=== PATIENT | male | born 1950 | race Hispanic/Latino ===

== ENCOUNTER 2020-04-14 23:25 | Emergency (ER) | payer MEDICARE | END 2020-04-15 | disposition left against medical advice (07) | LOC: ED 23:25 | DX: Z00.00 Encounter for general adult medical examination without abnormal findings (principal); Z53.21 Procedure and treatment not carried out due to patient leaving prior to being seen by health care provider ==

== ENCOUNTER 2020-04-18 12:52 | Inpatient (IN) | payer MEDICARE ==
[2020-04-18] MEDS ORDERED: MELATONIN 5 MG TAB PO PRN (13:11)
--- NOTE | 2020-04-18 21:14 | Consultation ---
History of Present Illness - Reason for Consult Consult date: 04/18/20 Medical management Requesting physician: KARLA REIS - History of Present Illness 69 YO Male with Vascular Dementia with Behavioral Disturbance, Cerebral Atherosclerosis admitted to [facility] for Psychiatric stabilization. Consult placed by Dr. Reis for medical management. Patient seen and evaluated in the recreation room. Patient resting comfortably. Patient denies fever, chills, chest pain, palpitation, productive cough, skin rash, recent ill contacts, or known exposure to COVID-19. Past History Past Medical History: other (See HPI) Past Surgical History: No surgical history, Other (Reviewed) Social history: single. denies: smoking, alcohol abuse Family history: hypertension Medications and Allergies Allergies Allergy/AdvReac Type Severity Reaction Status Date / Time No Known Allergies Allergy Verified 04/15/20 10:56 Home Medications Medication Instructions Recorded Confirmed Last Taken Type Unobtainable 04/18/20 04/18/20 Unknown History Active Meds: Active Medications Divalproex Sodium (Divalproex Dr 125 Mg Tab) 125 mg PO BID [facility] Melatonin (Melatonin 5 Mg Tab) 5 mg PO QHS PRN PRN Reason: Sleep Trazodone HCl (Trazodone 50 Mg Tab) 50 mg PO QHS [facility] Review of Systems Constitutional: no weight loss, no weight gain, no fever, no chills Ears, nose, mouth and throat: no ear pain, no ear discharge, no tinnitis Cardiovascular: no chest pain, no orthopnea, no palpitations, no rapid/irregular heart beat, no edema Respiratory: no cough, no cough with sputum, no hemoptysis Gastrointestinal: no nausea, no vomiting, no diarrhea, no constipation Genitourinary Male: no hematuria, no flank pain, no discharge, no urinary frequency, no urinary hesitancy Rectal: no pain, no incontinence, no bleeding Musculoskeletal: no neck stiffness, no neck pain, no shooting arm pain, no low back pain, no leg numbness/tingling Integumentary: no rash, no pruritis, no redness, no sores Neurological: no head injury, no transient paralysis, no weakness, no parathesias, no numbness, no tingling Psychiatric: no anxiety, no change in appetite Endocrine: no cold intolerance, no heat intolerance, no polyphagia Hematologic/Lymphatic: no easy bruising, no easy bleeding Allergic/Immunologic: no urticaria, no allergic rhinitis Exam - Constitutional General appearance: Present: no acute distress, well-nourished - EENT Eyes: Present: PERRL ENT: hearing intact, clear oral mucosa - Neck Neck: Present: supple, normal ROM - Respiratory Respiratory effort: normal Respiratory: bilateral: CTA - Cardiovascular Heart Sounds: Present: S1 & S2. Absent: rub, click - Extremities Extremities: pulses symmetrical, No edema Peripheral Pulses: within normal limits - Abdominal General gastrointestinal: Present: soft, non-tender, non-distended, normal bowel sounds Male genitourinary: Present: normal - Integumentary Integumentary: Present: clear, warm, dry - Musculoskeletal Musculoskeletal: gait normal, strength equal bilaterally - Psychiatric Psychiatric: appropriate mood/affect, intact judgment & insight - Neurologic Neurologic: CNII-XII intact, moves all extremities Assessment and Plan - Patient Problems (1) Vascular dementia with behavioral disturbance Current Visit: Yes Status: Acute Plan to address problem: Verbal prompting, verbal redirection, benzodiazepine therapy as clinically indic ated, supportive care. (2) Cerebral atherosclerosis Current Visit: Yes Status: Acute Plan to address problem: Risk factor reduction, antiplatelet therapy as clinically indicated, supportive care.
[2020-04-18] MEDS: DIVALPROEX DR 125 MG TAB PO SCH (21:40)
[2020-04-18] MEDS: traZODone 50 MG TAB PO SCH (21:41)
[2020-04-19 07:17] LABS: Chol/HDL Ratio 2.29 %
--- NOTE | 2020-04-19 08:15 | History and Physical Report ---
GP History & Physical - History of Present Illness Date of admission: 04/18/20 Date of Examination: 04/19/20 Reason for Admission: Failure of Outpatient Treatment, Unable to care for self History of Present Illness: Oh Medina is a 69y/o male patient whom I've been treating for the past couple of days in the ER. The patient was brought in by police after being found wandering the streets. Upon arriving to the ER the patient was found to be agitated, and disorganized. It is documented that family states the patient has been missing for a week. During my interview with the patient he is lying down, he is resting with his eyes closed. He easily arouses. He is oriented x 1. He is a poor historian and it's unclear as to what he's telling me is factual. The patient's speech is garbled and very difficult to understand. The patient states "I had a vasectomy and it affected the way I speak." He was unable to tell me what brought him to the ER. The patient states he saw a psychiatrist "a long time ago." It is documented that the patient has a history of schizophrenia and takes zyprexa. He denies being on any psychiatric medications, but does state he takes "melatonin to help him sleep." When asking the patient was he suicidal or wanted to hurt anybody else, he shook his head, then replied "no." When asked had he ever in the past attempted suicide, the patient replied "no, I'd never do that." He also denies hallucinations of any kind. The patient denies any illicit drug use or nicotine. He says he drinks "very little alcohol." During my interview with the patient today he is sitting on side of the bed, he is well groomed. He is a/o x 3, although he is nonsensical at times. He apparently hallucinates at times as well; as the patient was witness by the sitter yesterday talking to himself a lot, and has been off of his medication. The patient starts telling me that "years ago he tried heroine." He then says "but that was long ago, not anymore." When asked about hallucinations, the patient replies "no." After mentioning to him that the staff yesterday observed him speaking to himself a lot, the patient replies "I have impressions of José, Jehovah, and wisdom." He then starts quoting a Bible scripture." The patient says "I wouldn't necessarily say that's talking to myself, but I would say that I have conversations with wisdom." The patient denies SI/HI. PAST PSYCHIATRIC HISTORY Diagnoses: schizophrenia Suicide attempts or Self-harm behavior: Denies Prior psychiatric hospitalizations: Denies Substance Abuse history: Heroine Previous psychiatric medications tried: zyprexa documented Outpatient treatment: "a long time ago." PAST MEDICAL HISTORY: None reported Family Psychiatric History: None reported or documented SOCIAL HISTORY Unable to assess REVIEW OF SYSTEMS Constitutional: Negative for weight loss ENT: Negative for stridor Respiratory: Negative for cough or hemoptysis All other systems reviewed and are negative MENTAL STATUS EXAMINATION General Appearance and Behavior: Age appropriate, good hygiene, wearing appropriate clothes, poor eye contact Cooperation: Participating/engaged Psychomotor Behavior: Psychomotor normal Mood: "not good" Affect and affective range: congruent with stated mood Thought Process: illogical Thought Content: none Speech: Normal rate, volume and rhythm Suicidal Ideation: Denies at present Homicidal Ideation: Denies Hallucinations: Denies Delusions: None elicited Impulse Control: Impaired Insight and Judgment: impaired insight and judgment Memory: Impaired Attention: impaired Orientation: Alert, oriented Assessment and Plan (1) Schizophrenia (2) Noncompliance with other medical treatments and regimen Treatment Plan Patient admitted for inpatient psychiatric evaluation, medication adjustment and close monitoring The patient's behavior, mood, sleep and appetite will be closely monitored. Patient enrolled in individual and group therapeutic sessions and encouraged to attend. Patient provided with a safe and structured environment. Patient's physical health needs will be addressed by the Hospitalist. Hospitalist Consulted Labs including CBC, CMP, Lipid profile and Hemoglobin A1C levels ordered for baseline reference Social Assessment will be completed and the Napkin Band Wrapper will work with patient and family to ensure a suitable and safe disposition Medication adjustment will be made as clinically indicated Start Klonozepam 0.25mg po BID x 2 days Start Zyprexa 5mgm po daily Start Trazodone 50mg po qhs Start melatonin 5mg po qhs prn insomnia Start Depakote DR 125mg po BID Usual Wellness Yazidi/Preservation: - Start Trazodone 50 mg po QHS & 50 mg po QHS PRN between 10 PM & 2 AM for insomnia - Start Melatonin 5 mg po QHS to promote circadian rhythm - Start [place]-3 for brain health, reduce impulsivity, and as adjunctive treatment for mood disorder, continue upon discharge given overall benefits. - Start B1 prophylaxis with 200 mg po for 5 days The patient agreed on the treatment plan, understood the risk, benefit, alternative treatment, potential consequence of no treatment, and gave informed consent. Initial Certification I certify that the inpatient psychiatric services are required for treatment that could reasonably be expected to improve the patient's condition for hallucinations and disorganization. Estimated days: 5 Post hospital care: Outpatient Case staffed with Dr. Briceño. Legal Status: Voluntary Reaction to Hospitalization: Accepting Medications and Allergies Allergies Allergy/AdvReac Type Severity Reaction Status Date / Time No Known Allergies Allergy Verified 04/15/20 10:56 Home Medications Medication Instructions Recorded Confirmed Last Taken Type Unobtainable 04/18/20 04/18/20 Unknown History Active Meds: Active Medications Divalproex Sodium (Divalproex Dr 125 Mg Tab) 125 mg PO BID [facility] Last Admin: 04/18/20 21:40 Dose: 125 mg Documented by: Melatonin (Melatonin 5 Mg Tab) 5 mg PO QHS PRN PRN Reason: Sleep Trazodone HCl (Trazodone 50 Mg Tab) 50 mg PO QHS [facility] Last Admin: 04/18/20 21:41 Dose: 50 mg Documented by: Results - Results Labs/Vitals: Laboratory Last Values POC Glucose 86 mg/dL (70-105) 04/19/20 07:47 Triglycerides 94 mg/dL (2-149) 04/19/20 06:14 Cholesterol 140 mg/dL (50-199) 04/19/20 06:14 LDL Cholesterol Direct 61 mg/dL (50-130) 04/19/20 06:14 HDL Cholesterol 61 mg/dL (40-59) H 04/19/20 06:14 Cholesterol/HDL Ratio 2.29 % 04/19/20 06:14 TSH 2.660 mlU/mL (0.270-4.200) 04/19/20 06:14 Last Vital Signs Temp 99.1 F 04/18/20 22:00 Pulse 81 04/18/20 22:00 Resp 16 04/18/20 22:00 BP 135/58 04/18/20 22:00 Pulse Ox 99 04/18/20 22:00 Physical Examination - Constitutional Vitals: Vital Signs Temp Pulse Resp BP Pulse Ox 99.1 F 81 16 135/58 99 04/18/20 22:00 04/18/20 22:00 04/18/20 22:00 04/18/20 22:00 04/18/20 22:00 Temperature -Last 24 Hours Temperature 99.1 F Mental Status Exam - Vital signs Last Vital Signs Temp 99.1 F 04/18/20 22:00 Pulse 81 04/18/20 22:00 Resp 16 04/18/20 22:00 BP 135/58 04/18/20 22:00 Pulse Ox 99 04/18/20 22:00 Physician Certification - Certification Statement Physician Certification Statement: This is an acknowledgement statement that OH MEDINA is a 69 year old M who requires inpatient psychiatric admission for treatment which could reasonably be expected to improve the patient's condition for Estimated period of time patient will need to remain in the hospital: [ ] Plan for post-hospital care: [ ]
[2020-04-19] MEDS: DIVALPROEX DR 125 MG TAB PO SCH ×2 (09:50→21:03)
[2020-04-19] MEDS: clonazePAM 0.5 MG TAB PO SCH ×2 (09:50→21:04)
[2020-04-19] MEDS: traZODone 50 MG TAB PO SCH (21:03)
--- NOTE | 2020-04-20 08:17 | Progress Note ---
Subjective Date of service: 04/20/20 Principal diagnosis: Schizophrenia Subjective Comment: During my interview with the patient this morning, he is sitting in the dayroom. He is a/o x 3, but thoughts are disorganized at times. He is calm and cooperative. The patient appears to have some hyper-cheondoism episodes. The patient initially says "I slept good good all night." He then says "I took cat naps, and was awake most of the night." He is asking me if he can call the number on the menu to speak about his breakfast. He says "I can't find my smart phone to call myself." The patient denies SI/HI. He also denies hallucinations of any kind. The patient then replies, "Our God shall not slumber nor sleep. It is the same way with people." The patient is seen mumbling to himself as I'm walking off. REVIEW OF SYSTEMS Constitutional: Negative for weight loss ENT: Negative for stridor Respiratory: Negative for cough or hemoptysis All other systems reviewed and are negative MENTAL STATUS EXAMINATION General Appearance and Behavior: Age appropriate, good hygiene, wearing appropriate clothes, poor eye contact Cooperation: Participating/engaged Psychomotor Behavior: Psychomotor normal Mood: "good" Affect and affective range: congruent with stated mood Thought Process: illogical, disorganized at times Thought Content: hallucinations Speech: Normal rate, volume and rhythm Suicidal Ideation: Denies at present Homicidal Ideation: Denies Hallucinations: Denies Delusions: None elicited Impulse Control: Impaired Insight and Judgment: impaired insight and judgment Memory: Impaired Attention: impaired Orientation: Alert, oriented Assessment and Plan (1) Schizophrenia (2) Noncompliance with other medical treatments and regimen Treatment Plan Patient admitted for inpatient psychiatric evaluation, medication adjustment and close monitoring The patient's behavior, mood, sleep and appetite will be closely monitored. Patient enrolled in individual and group therapeutic sessions and encouraged to attend. Patient provided with a safe and structured environment. Patient's physical health needs will be addressed by the Hospitalist. Hospitalist Consulted Labs including CBC, CMP, Lipid profile and Hemoglobin A1C levels ordered for baseline reference Social Assessment will be completed and the Bryologist will work with patient and family to ensure a suitable and safe disposition Medication adjustment will be made as clinically indicated Increased Depakote DR 250mg p BID Increased Olanzapine 7.5mg po daily Usual Wellness Anglican/Preservation: - Start Trazodone 50 mg po QHS & 50 mg po QHS PRN between 10 PM & 2 AM for insomnia - Start Melatonin 5 mg po QHS to promote circadian rhythm - Start [place]-3 for brain health, reduce impulsivity, and as adjunctive treatment for mood disorder, continue upon discharge given overall benefits. - Start B1 prophylaxis with 200 mg po for 5 days The patient agreed on the treatment plan, understood the risk, benefit, alternative treatment, potential consequence of no treatment, and gave informed consent. Estimated days: 5 Post hospital care: Outpatient Case staffed with Dr. Briceño. Medications and Allergies Allergies Allergy/AdvReac Type Severity Reaction Status Date / Time No Known Allergies Allergy Verified 04/15/20 10:56 Home Medications Medication Instructions Recorded Confirmed Last Taken Type Unobtainable 04/18/20 04/18/20 Unknown History Active Meds: Active Medications Clonazepam (Clonazepam 0.5 Mg Tab) 0.25 mg PO BID [facility] Stop: 04/21/20 06:00 Last Admin: 04/19/20 21:04 Dose: 0.25 mg Documented by: Divalproex Sodium (Divalproex Dr 125 Mg Tab) 125 mg PO BID [facility] Last Admin: 04/19/20 21:03 Dose: 125 mg Documented by: Melatonin (Melatonin 5 Mg Tab) 5 mg PO QHS PRN PRN Reason: Sleep Olanzapine (Olanzapine 5 Mg Tab) 5 mg PO QDAY [facility] Last Admin: 04/19/20 09:50 Dose: 5 mg Documented by: Trazodone HCl (Trazodone 50 Mg Tab) 50 mg PO QHS [facility] Last Admin: 04/19/20 21:03 Dose: 50 mg Documented by: Results - Results Labs/Vitals: Laboratory Last Values POC Glucose 86 mg/dL (70-105) 04/19/20 07:47 Triglycerides 94 mg/dL (2-149) 04/19/20 06:14 Cholesterol 140 mg/dL (50-199) 04/19/20 06:14 LDL Cholesterol Direct 61 mg/dL (50-130) 04/19/20 06:14 HDL Cholesterol 61 mg/dL (40-59) H 04/19/20 06:14 Cholesterol/HDL Ratio 2.29 % 04/19/20 06:14 TSH 2.660 mlU/mL (0.270-4.200) 04/19/20 06:14 Last Vital Signs Temp 99.6 F 04/19/20 22:00 Pulse 83 04/19/20 22:00 Resp 18 04/19/20 22:00 BP 137/59 04/19/20 22:00 Pulse Ox 97 04/19/20 22:00
[2020-04-20] MEDS: clonazePAM 0.5 MG TAB PO SCH ×2 (10:21→21:53)
[2020-04-20] MEDS: DIVALPROEX DR 250 MG TAB PO SCH ×2 (10:22→21:54)
[2020-04-20] MEDS: traZODone 50 MG TAB PO SCH (21:54)
--- NOTE | 2020-04-21 07:18 | Progress Note ---
Subjective Date of service: 04/21/20 Principal diagnosis: Schizophrenia Subjective Comment: Per Psych Nurse: Patient is alert and oriented X3, calm and cooperative, took medication with encouragement, pt says," I don't take medication and I am being forced to take all this medications, i will have to get my Director Of Finance". Pt. observes talking to himself, no agitation, no distress noted, he interact appropriately with peers, he participate in group. Will continue to monitor. Psych Progress HPI Patient seen in the hallway this a.m., when asked patient why is in the hospital, patient reported it was because he was talking to a bunch of [employer]if[employer]ian workers and that was his own side of the story, not what is being portrayed unforetold at this facility and by the data warehouse administrator. Patient starting quoting the bible, says whatever has happened in the past is the past and wishes not to talk about. Patient is circumstantial in response, makes less meaningful sentences. Patient also states he does not want to take the medicines because they are poison, someone here is trying to get to sleep and not wake up. Reason for continuing inpatient treatment: Nurse reports poor sleep, Though patient has history of Schizophrenia, concern for underlying dementia, will continue medications and ensure compliance for 2 more days and conduct mental status exam to capture best response. REVIEW OF SYSTEMS Constitutional: Negative for weight loss ENT: Negative for stridor Respiratory: Negative for cough or hemoptysis All other systems reviewed and are negative MENTAL STATUS EXAMINATION General Appearance and Behavior: Age appropriate, good hygiene, wearing appropriate clothes, poor eye contact Cooperation: Participating/engaged Psychomotor Behavior: Psychomotor normal Mood: "good" Affect and affective range: congruent with stated mood Thought Process: illogical, disorganized at times Thought Content: hallucinations, paranoia Speech: Normal rate, volume and rhythm Suicidal Ideation: Denies at present Homicidal Ideation: Denies Hallucinations: Denies Delusions: None elicited Impulse Control: Impaired Insight and Judgment: impaired insight and judgment Memory: Impaired Attention: impaired Orientation: Alert, oriented Assessment and Plan (1) Schizophrenia (2) Noncompliance with other medical treatments and regimen Treatment Plan Patient admitted for inpatient psychiatric evaluation, medication adjustment and close monitoring The patient's behavior, mood, sleep and appetite will be closely monitored. Patient enrolled in individual and group therapeutic sessions and encouraged to attend. Patient provided with a safe and structured environment. Patient's physical health needs will be addressed by the Hospitalist. Hospitalist Consulted Labs including CBC, CMP, Lipid profile and Hemoglobin A1C levels ordered for baseline reference Social Assessment will be completed and the Concrete Engineer will work with patient and family to ensure a suitable and safe disposition Medication adjustment will be made as clinically indicated Increased Depakote DR 250mg p BID Increased Olanzapine 7.5mg po daily Usual Wellness Advent/Preservation: - Start Trazodone 50 mg po QHS & 50 mg po QHS PRN between 10 PM & 2 AM for insomnia - Start Melatonin 5 mg po QHS to promote circadian rhythm - Start [place]-3 for brain health, reduce impulsivity, and as adjunctive treatment for mood disorder, continue upon discharge given overall benefits. - Start B1 prophylaxis with 200 mg po for 5 days The patient agreed on the treatment plan, understood the risk, benefit, alternative treatment, potential consequence of no treatment, and gave informed consent. Estimated days: 5 Post hospital care: Outpatient Case staffed with Dr. Briceño. Medications and Allergies Allergies Allergy/AdvReac Type Severity Reaction Status Date / Time No Known Allergies Allergy Verified 04/15/20 10:56 Home Medications Medication Instructions Recorded Confirmed Last Taken Type Unobtainable 04/18/20 04/18/20 Unknown History Active Meds: Active Medications Divalproex Sodium (Divalproex Dr 250 Mg Tab) 250 mg PO BID [facility] Last Admin: 04/20/20 21:54 Dose: 250 mg Documented by: Melatonin (Melatonin 5 Mg Tab) 5 mg PO QHS PRN PRN Reason: Sleep Last Admin: 04/21/20 00:56 Dose: 5 mg Documented by: Olanzapine (Olanzapine 7.5 Mg Tab) 7.5 mg PO QDAY [facility] Last Admin: 04/20/20 10:22 Dose: 7.5 mg Documented by: Trazodone HCl (Trazodone 50 Mg Tab) 50 mg PO QHS [facility] Last Admin: 04/20/20 21:54 Dose: 50 mg Documented by: Results - Results Labs/Vitals: Laboratory Last Values POC Glucose 86 mg/dL (70-105) 04/19/20 07:47 Triglycerides 94 mg/dL (2-149) 04/19/20 06:14 Cholesterol 140 mg/dL (50-199) 04/19/20 06:14 LDL Cholesterol Direct 61 mg/dL (50-130) 04/19/20 06:14 HDL Cholesterol 61 mg/dL (40-59) H 04/19/20 06:14 Cholesterol/HDL Ratio 2.29 % 04/19/20 06:14 TSH 2.660 mlU/mL (0.270-4.200) 04/19/20 06:14 Last Vital Signs Temp 98.7 F 04/20/20 19:40 Pulse 74 04/20/20 19:40 Resp 20 04/20/20 19:40 BP 138/52 04/20/20 19:40 Pulse Ox 99 04/20/20 19:40
[2020-04-21] MEDS: DIVALPROEX DR 250 MG TAB PO SCH ×2 (12:19→21:01)
[2020-04-21] MEDS: MIRTAZAPINE 15 MG TAB PO SCH (21:01)
--- NOTE | 2020-04-22 09:18 | Progress Note ---
Subjective Date of service: 04/22/20 Principal diagnosis: Schizophrenia Subjective Comment: Per Psych Nurse: pt spent the evening in activity room interacting with peers, pt is alert and orientedx3, calm and cooperative, able to make needs known, medication complaint, responds to internal stimuli, observes talking to his self, good appetite, no distress noted, will continue to monitor for safety. Psych Progress HPI Patient seen this a.m., patient seems to be in a very bad mood, patient was loud, he irritated, hyperverbal and continues to cooperate with this interview this AM. Patient states that he would like to have his clothes, his bags of belongings so that he can leave, patient continues to "the Bible talking about how the devil is in the [address] Patient also states that he would never take any medication because the medication sedating, later patient apologized for his misplaced anger. Reason for continuing inpatient treatment: Patient is hyperverbal, very irritated, loud and angry this a.m. and also states that he would not be taking any medication., concern for underlying dementia, will continue medications and ensure compliance for 2 more days and conduct mental status exam to capture best response. REVIEW OF SYSTEMS Constitutional: Negative for weight loss ENT: Negative for stridor Respiratory: Negative for cough or hemoptysis All other systems reviewed and are negative MENTAL STATUS EXAMINATION General Appearance and Behavior: Age appropriate, good hygiene, wearing appropriate clothes, poor eye contact Cooperation: Withdrawn, guarded Psychomotor Behavior: Psychomotor agitation Mood: "not telling" Affect and affective range: dysthymic Thought Process: illogical, disorganized at times Thought Content: hallucinations, paranoia Speech: Normal rate, loud volume and rhythm Suicidal Ideation: Denies at present Homicidal Ideation: Denies Hallucinations: Denies Delusions: None elicited Impulse Control: Impaired Insight and Judgment: impaired insight and judgment Memory: Impaired Attention: impaired Orientation: Alert, oriented Assessment and Plan (1) Schizophrenia (2) Noncompliance with other medical treatments and regimen Treatment Plan Patient admitted for inpatient psychiatric evaluation, medication adjustment and close monitoring The patient's behavior, mood, sleep and appetite will be closely monitored. Patient enrolled in individual and group therapeutic sessions and encouraged to attend. Patient provided with a safe and structured environment. Patient's physical health needs will be addressed by the Hospitalist. Hospitalist Consulted Labs including CBC, CMP, Lipid profile and Hemoglobin A1C levels ordered for baseline reference Social Assessment will be completed and the Soloist Dancer will work with patient and family to ensure a suitable and safe disposition Medication adjustment will be made as clinically indicated Increased Depakote DR 250mg p BID Increased Olanzapine 7.5mg po daily Usual Wellness Evangelical/Preservation: - Start Trazodone 50 mg po QHS & 50 mg po QHS PRN between 10 PM & 2 AM for insomnia - Start Melatonin 5 mg po QHS to promote circadian rhythm - Start [place]-3 for brain health, reduce impulsivity, and as adjunctive treatment for mood disorder, continue upon discharge given overall benefits. - Start B1 prophylaxis with 200 mg po for 5 days The patient agreed on the treatment plan, understood the risk, benefit, alternative treatment, potential consequence of no treatment, and gave informed consent. Estimated days: 5 Post hospital care: Outpatient Case staffed with Dr. Briceño. Medications and Allergies Allergies Allergy/AdvReac Type Severity Reaction Status Date / Time No Known Allergies Allergy Verified 04/15/20 10:56 Home Medications Medication Instructions Recorded Confirmed Last Taken Type Unobtainable 04/18/20 04/18/20 Unknown History Active Meds: Active Medications Divalproex Sodium (Divalproex Dr 250 Mg Tab) 250 mg PO BID [facility] Last Admin: 04/21/20 21:01 Dose: 250 mg Documented by: Melatonin (Melatonin 5 Mg Tab) 5 mg PO QHS PRN PRN Reason: Sleep Last Admin: 04/21/20 00:56 Dose: 5 mg Documented by: Mirtazapine (Mirtazapine 15 Mg Tab) 15 mg PO QHS [facility] Last Admin: 04/21/20 21:01 Dose: 15 mg Documented by: Olanzapine (Olanzapine 7.5 Mg Tab) 7.5 mg PO QDAY [facility] Last Admin: 04/21/20 12:19 Dose: 7.5 mg Documented by: Results - Results Labs/Vitals: Laboratory Last Values POC Glucose 86 mg/dL (70-105) 04/19/20 07:47 Triglycerides 94 mg/dL (2-149) 04/19/20 06:14 Cholesterol 140 mg/dL (50-199) 04/19/20 06:14 LDL Cholesterol Direct 61 mg/dL (50-130) 04/19/20 06:14 HDL Cholesterol 61 mg/dL (40-59) H 04/19/20 06:14 Cholesterol/HDL Ratio 2.29 % 04/19/20 06:14 TSH 2.660 mlU/mL (0.270-4.200) 04/19/20 06:14 Last Vital Signs Temp 98.2 F 04/22/20 06:53 Pulse 79 04/22/20 06:53 Resp 16 04/22/20 06:53 BP 138/60 04/22/20 06:53 Pulse Ox 100 04/22/20 06:53
[2020-04-22] MEDS: DIVALPROEX DR 250 MG TAB PO SCH ×3 (10:39→22:36)
[2020-04-22] MEDS ORDERED: WATER FOR INJ Sterile (PF) 10 ML ONE (10:40)
[2020-04-22] MEDS: LORazepam 2 MG/ML VIAL IM PRN ×2 (11:03→18:16)
[2020-04-22] MEDS: ZIPRASIDONE MESYLATE 20 MG VIAL IM PRN ×2 (11:03→18:16)
[2020-04-22] MEDS: MIRTAZAPINE 15 MG TAB PO SCH ×2 (21:39→22:38)
--- NOTE | 2020-04-23 09:22 | Progress Note ---
Subjective Date of service: 04/23/20 Principal diagnosis: Schizophrenia Subjective Comment: Per Psych Nurse: Patient slept until 0115. He was awake until 0415. He stood at his sink washing a piece of laundry most of that time. This morning at 6 am the patient came to nurses station wrapped in his blanket asking for scrubs and socks. He was mumbling some incoherent sentences and ended that with a Bible scripture. Will continue to monitor patient for safety. Psych Progress HPI Patient seen this a.m. in the hour, seems to be talking to self, responding some sort of internal stimuli with intermittent confusion and patient continues to be apologetic about yesterday's behavior. Patient can also be heard quoting the Bible, saying one should not listen to their master unless the master curses them. Reason for continuing inpatient treatment: Increased patients deparkote for his manic symptoms. Patient is hyperverbal, very irritated, loud and angry this a.m. and also states that he would not be taking any medication still. Patient star bashir on IM geodon BID due to non compliance. REVIEW OF SYSTEMS Constitutional: Negative for weight loss ENT: Negative for stridor Respiratory: Negative for cough or hemoptysis All other systems reviewed and are negative MENTAL STATUS EXAMINATION General Appearance and Behavior: Age appropriate, good hygiene, wearing appropriate clothes, poor eye contact Cooperation: guarded Psychomotor Behavior: Psychomotor agitation Mood: "not telling" Affect and affective range: dysthymic Thought Process: illogical, incoherent disorganized at times Thought Content: hallucinations, paranoia Speech: Normal rate, loud volume and rhythm Suicidal Ideation: Denies at present Homicidal Ideation: Denies Hallucinations: Denies Delusions: None elicited Impulse Control: Impaired Insight and Judgment: impaired insight and judgment Memory: Impaired Attention: impaired Orientation: Alert, oriented Assessment and Plan (1) Schizophrenia (2) Noncompliance with other medical treatments and regimen Treatment Plan Patient admitted for inpatient psychiatric evaluation, medication adjustment and close monitoring The patient's behavior, mood, sleep and appetite will be closely monitored. Patient enrolled in individual and group therapeutic sessions and encouraged to attend. Patient provided with a safe and structured environment. Patient's physical health needs will be addressed by the Hospitalist. Hospitalist Consulted Labs including CBC, CMP, Lipid profile and Hemoglobin A1C levels ordered for baseline reference Social Assessment will be completed and the Commercial Hvac Technician will work with patient and family to ensure a suitable and safe disposition Medication adjustment will be made as clinically indicated IM geodon 2 doses 10 mg for today. Increased Depakote DR 500 mg MID Increased Olanzapine 10mg po daily Usual Wellness Evangelical/Preservation: - Start Trazodone 50 mg po QHS & 50 mg po QHS PRN between 10 PM & 2 AM for insomnia - Start Melatonin 5 mg po QHS to promote circadian rhythm - Start [place]-3 for brain health, reduce impulsivity, and as adjunctive treatment for mood disorder, continue upon discharge given overall benefits. - Start B1 prophylaxis with 200 mg po for 5 days The patient agreed on the treatment plan, understood the risk, benefit, alternative treatment, potential consequence of no treatment, and gave informed consent. Estimated days: 4 Post hospital care: Outpatient Case staffed with Dr. Briceño. Medications and Allergies Allergies Allergy/AdvReac Type Severity Reaction Status Date / Time No Known Allergies Allergy Verified 04/15/20 10:56 Home Medications Medication Instructions Recorded Confirmed Last Taken Type Unobtainable 04/18/20 04/18/20 Unknown History Active Meds: Active Medications Divalproex Sodium (Divalproex Dr 250 Mg Tab) 250 mg PO BID [facility] Last Admin: 04/22/20 22:36 Dose: Not Given Documented by: Lorazepam (Lorazepam 2 Mg/Ml Vial) 2 mg IM Q4H PRN PRN Reason: Agitation Last Admin: 04/22/20 18:16 Dose: 2 mg Documented by: Melatonin (Melatonin 5 Mg Tab) 5 mg PO QHS PRN PRN Reason: Sleep Last Admin: 04/21/20 00:56 Dose: 5 mg Documented by: Mirtazapine (Mirtazapine 15 Mg Tab) 15 mg PO QHS [facility] Last Admin: 04/22/20 22:38 Dose: Not Given Documented by: Olanzapine (Olanzapine 7.5 Mg Tab) 7.5 mg PO QDAY [facility] Last Admin: 04/22/20 10:39 Dose: Not Given Documented by: Results - Results Labs/Vitals: Laboratory Last Values POC Glucose 86 mg/dL (70-105) 04/19/20 07:47 Triglycerides 94 mg/dL (2-149) 04/19/20 06:14 Cholesterol 140 mg/dL (50-199) 04/19/20 06:14 LDL Cholesterol Direct 61 mg/dL (50-130) 04/19/20 06:14 HDL Cholesterol 61 mg/dL (40-59) H 04/19/20 06:14 Cholesterol/HDL Ratio 2.29 % 04/19/20 06:14 TSH 2.660 mlU/mL (0.270-4.200) 04/19/20 06:14 Last Vital Signs Temp 98.6 F 04/23/20 07:03 Pulse 95 H 04/23/20 07:03 Resp 16 04/23/20 07:03 BP 133/57 04/23/20 07:03 Pulse Ox 99 04/23/20 07:03
[2020-04-23] MEDS ORDERED: DIVALPROEX DR 250 MG TAB PO SCH ×2 (09:48→14:00)
[2020-04-23] MEDS ORDERED: WATER FOR INJ Sterile (PF) 10 ML ONE (10:34)
[2020-04-23] MEDS: ZIPRASIDONE MESYLATE 20 MG VIAL IM SCH ×2 (11:10→21:17)
[2020-04-23] MEDS: DIVALPROEX DR 500 MG TAB PO SCH ×2 (14:50→19:26)
[2020-04-23] MEDS: MIRTAZAPINE 15 MG TAB PO SCH (21:17)
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
[2020-04-24] MEDS ORDERED: FLUoxetine 20 MG CAP PO SCH (10:00)
[2020-04-24] MEDS: DIVALPROEX DR 500 MG TAB PO SCH ×3 (10:06→20:37)
[2020-04-24] MEDS ORDERED: ALBUTEROL 2.5 MG/3 ML NEBU IH PRN (11:00)
[2020-04-24] MEDS ORDERED: LEVALBUTEROL 0.63 MG/3 ML NEBU IH PRN (12:25)
--- NOTE | 2020-04-24 12:36 | XRay Report ---
CHEST 1 VIEW INDICATION / CLINICAL INFORMATION: cough. COMPARISON: 04/15/2020 FINDINGS: SUPPORT DEVICES: None. HEART / MEDIASTINUM: No significant abnormality. LUNGS / PLEURA: No significant pulmonary or pleural abnormality. No pneumothorax. ADDITIONAL FINDINGS: No significant additional findings. IMPRESSION: No acute disease or interval change from 04/15/2020 Signer Name: Amilcar Turner MD FACR Signed: 04/24/2020 12:31 PM Workstation Name: [id number]
[2020-04-24] MEDS ORDERED: ACETAMINOPHEN 325 MG TAB PO PRN (16:31)
[2020-04-24] MEDS: AMOXICILLIN 500 MG CAP PO SCH ×2 (17:38→21:12)
[2020-04-24] MEDS: ZOLPIDEM 5 MG TAB PO SCH (21:11)
[2020-04-24] MEDS: QUEtiapine 100 MG TAB PO SCH (21:11)
--- NOTE | 2020-04-24 21:11 | Progress Note ---
Assessment and Plan - Patient Problems (1) Vascular dementia with behavioral disturbance Current Visit: Yes Status: Acute Plan to address problem: Verbal prompting, verbal redirection, benzodiazepine therapy as clinically indicated, supportive care. (2) Cerebral atherosclerosis Current Visit: Yes Status: Acute Plan to address problem: Risk factor reduction, antiplatelet therapy as clinically indicated, supportive care. History Interval history: 69 YO Male with Vascular Dementia with Behavioral Disturbance, Cerebral Atherosclerosis admitted to [facility] for Psychiatric stabilization. Patient seen and evaluated in the recreation room. Patient resting comfortably. Patient denies pain. No reported nursing events. Patient cooperative with exam and interview. Hospitalist Physical - Constitutional Vitals: Temp Pulse Resp BP Pulse Ox 99.2 F 88 18 125/53 99 04/24/20 08:58 04/24/20 14:41 04/24/20 17:42 04/24/20 08:58 04/24/20 08:58 General appearance: Present: no acute distress, well-nourished - EENT Eyes: Present: PERRL, EOM intact ENT: hearing intact - Neck Neck: Present: supple - Respiratory Respiratory: bilateral: CTA - Cardiovascular Rhythm: regular Heart Sounds: Present: S1 & S2 Peripheral Pulses: within normal limits - Abdominal General gastrointestinal: soft, non-tender, non-distended - Integumentary Integumentary: Present: clear, dry - Psychiatric Psychiatric: cooperative - Neurologic Neurologic: CNII-XII intact Results - Labs Labs: Laboratory Last Values POC Glucose 103 mg/dL (70-105) 04/24/20 12:47 Triglycerides 94 mg/dL (2-149) 04/19/20 06:14 Cholesterol 140 mg/dL (50-199) 04/19/20 06:14 LDL Cholesterol Direct 61 mg/dL (50-130) 04/19/20 06:14 HDL Cholesterol 61 mg/dL (40-59) H 04/19/20 06:14 Cholesterol/HDL Ratio 2.29 % 04/19/20 06:14 TSH 2.660 mlU/mL (0.270-4.200) 04/19/20 06:14 Sanchez/IV: Voiding Method Toilet Active Medications - Current Medications Current Medications: Generic Name Dose Route Start Last Admin Trade Name Freq PRN Reason Stop Dose Admin Acetaminophen 650 mg 04/24/20 16:31 04/24/20 17:42 Acetaminophen 325 Mg Tab PO 650 mg Q6H PRN Administration Pain, Mild (1-3) Amoxicillin 500 mg 04/24/20 16:31 04/24/20 17:38 Amoxicillin 500 Mg Cap PO 04/27/20 23:59 500 mg Q8HR [facility] Administration Protocol Divalproex Sodium 500 mg 04/23/20 14:00 04/24/20 20:[address] 500 Mg Tab PO 500 mg TID [facility] Administration Fluoxetine HCl 20 mg 04/24/20 10:00 04/24/20 10:06 Fluoxetine 20 Mg Cap PO 20 mg QDAY [facility] Administration Levalbuterol HCl 0.63 mg 04/24/20 12:25 04/24/20 14:35 Levalbuterol 0.63 Mg/3 Ml Nebu IH 0.63 mg Q8H PRN Administration Shortness Of Breath Lorazepam 2 mg 04/22/20 10:02 04/22/20 18:16 Lorazepam 2 Mg/Ml Vial IM 2 mg Q4H PRN Administration Agitation Melatonin 5 mg 04/24/20 22:00 Melatonin 5 Mg Tab PO QHS [facility] Olanzapine 10 mg 04/24/20 10:00 04/24/20 10:06 Olanzapine 10 Mg Tab PO 10 mg DAILY [facility] Administration Quetiapine Fumarate 100 mg 04/24/20 22:00 Quetiapine 100 Mg Tab PO QHS [facility] Zolpidem Tartrate 5 mg 04/24/20 22:00 Zolpidem 5 Mg Tab PO QHS [facility]
[2020-04-24] MEDS: MELATONIN 5 MG TAB PO SCH (21:14)
--- NOTE | 2020-04-24 21:15 | Progress Note ---
Assessment and Plan - Patient Problems (1) Vascular dementia with behavioral disturbance Current Visit: Yes Status: Acute Plan to address problem: Verbal prompting, verbal redirection, benzodiazepine therapy as clinically indicated, supportive care. (2) Cerebral atherosclerosis Current Visit: Yes Status: Acute Plan to address problem: Risk factor reduction, antiplatelet therapy as clinically indicated, supportive care. History Interval history: 69 YO Male with Vascular Dementia with Behavioral Disturbance, Cerebral Atherosclerosis admitted to [facility] for Psychiatric stabilization. Patient seen and evaluated in the recreation room. Patient resting comfortably. Patient denies pain. No reported nursing events. Patient cooperative with exam and interview. Hospitalist Physical - Constitutional Vitals: Temp Pulse Resp BP Pulse Ox 99.2 F 88 18 125/53 99 04/24/20 08:58 04/24/20 14:41 04/24/20 17:42 04/24/20 08:58 04/24/20 08:58 General appearance: Present: no acute distress, well-nourished - EENT Eyes: Present: PERRL ENT: hearing intact - Neck Neck: Present: supple - Respiratory Respiratory: bilateral: CTA - Cardiovascular Rhythm: regular Heart Sounds: Present: S1 & S2 - Extremities Extremities: no ischemia Peripheral Pulses: within normal limits - Abdominal General gastrointestinal: soft, non-tender, non-distended - Integumentary Integumentary: Present: clear, dry - Psychiatric Psychiatric: cooperative - Neurologic Neurologic: CNII-XII intact Results - Labs Labs: Laboratory Last Values POC Glucose 103 mg/dL (70-105) 04/24/20 12:47 Triglycerides 94 mg/dL (2-149) 04/19/20 06:14 Cholesterol 140 mg/dL (50-199) 04/19/20 06:14 LDL Cholesterol Direct 61 mg/dL (50-130) 04/19/20 06:14 HDL Cholesterol 61 mg/dL (40-59) H 04/19/20 06:14 Cholesterol/HDL Ratio 2.29 % 04/19/20 06:14 TSH 2.660 mlU/mL (0.270-4.200) 04/19/20 06:14 Sanchez/IV: Voiding Method Toilet Active Medications - Current Medications Current Medications: Generic Name Dose Route Start Last Admin Trade Name Freq PRN Reason Stop Dose Admin Acetaminophen 650 mg 04/24/20 16:31 04/24/20 17:42 Acetaminophen 325 Mg Tab PO 650 mg Q6H PRN Administration Pain, Mild (1-3) Amoxicillin 500 mg 04/24/20 16:31 04/24/20 21:12 Amoxicillin 500 Mg Cap PO 04/27/20 23:59 500 mg Q8HR [facility] Administration Protocol Divalproex Sodium 500 mg 04/23/20 14:00 04/24/20 20:[address] 500 Mg Tab PO 500 mg TID [facility] Administration Fluoxetine HCl 20 mg 04/24/20 10:00 04/24/20 10:06 Fluoxetine 20 Mg Cap PO 20 mg QDAY [facility] Administration Levalbuterol HCl 0.63 mg 04/24/20 12:25 04/24/20 14:35 Levalbuterol 0.63 Mg/3 Ml Nebu IH 0.63 mg Q8H PRN Administration Shortness Of Breath Lorazepam 2 mg 04/22/20 10:02 04/22/20 18:16 Lorazepam 2 Mg/Ml Vial IM 2 mg Q4H PRN Administration Agitation Melatonin 5 mg 04/24/20 22:00 Melatonin 5 Mg Tab PO QHS [facility] Olanzapine 10 mg 04/24/20 10:00 04/24/20 10:06 Olanzapine 10 Mg Tab PO 10 mg DAILY [facility] Administration Quetiapine Fumarate 100 mg 04/24/20 22:00 04/24/20 21:11 Quetiapine 100 Mg Tab PO 100 mg QHS [facility] Administration Zolpidem Tartrate 5 mg 04/24/20 22:00 04/24/20 21:11 Zolpidem 5 Mg Tab PO 5 mg QHS [facility] Administration
--- NOTE | 2020-04-24 21:16 | Progress Note ---
Assessment and Plan - Patient Problems (1) Vascular dementia with behavioral disturbance Current Visit: Yes Status: Acute Plan to address problem: Verbal prompting, verbal redirection, benzodiazepine therapy as clinically indicated, supportive care. (2) Cerebral atherosclerosis Current Visit: Yes Status: Acute Plan to address problem: Risk factor reduction, antiplatelet therapy as clinically indicated, supportive care. History Interval history: 69 YO Male with Vascular Dementia with Behavioral Disturbance, Cerebral Atherosclerosis admitted to [facility] for Psychiatric stabilization. Patient seen and evaluated in the recreation room. Patient resting comfortably. Patient denies pain. No reported nursing events. Patient cooperative with exam and interview. Hospitalist Physical - Constitutional Vitals: Temp Pulse Resp BP Pulse Ox 99.2 F 88 18 125/53 99 04/24/20 08:58 04/24/20 14:41 04/24/20 17:42 04/24/20 08:58 04/24/20 08:58 General appearance: Present: no acute distress, well-nourished - EENT Eyes: Present: PERRL, EOM intact ENT: hearing intact - Neck Neck: Present: supple - Respiratory Respiratory effort: normal Respiratory: bilateral: CTA - Cardiovascular Rhythm: regular Heart Sounds: Present: S1 & S2 - Extremities Extremities: no ischemia Peripheral Pulses: within normal limits - Abdominal General gastrointestinal: soft, non-tender, non-distended - Integumentary Integumentary: Present: clear, dry - Psychiatric Psychiatric: cooperative - Neurologic Neurologic: CNII-XII intact Results - Labs Labs: Laboratory Last Values POC Glucose 103 mg/dL (70-105) 04/24/20 12:47 Triglycerides 94 mg/dL (2-149) 04/19/20 06:14 Cholesterol 140 mg/dL (50-199) 04/19/20 06:14 LDL Cholesterol Direct 61 mg/dL (50-130) 04/19/20 06:14 HDL Cholesterol 61 mg/dL (40-59) H 04/19/20 06:14 Cholesterol/HDL Ratio 2.29 % 04/19/20 06:14 TSH 2.660 mlU/mL (0.270-4.200) 04/19/20 06:14 Sanchez/IV: Voiding Method Toilet Active Medications - Current Medications Current Medications: Generic Name Dose Route Start Last Admin Trade Name Freq PRN Reason Stop Dose Admin Acetaminophen 650 mg 04/24/20 16:31 04/24/20 17:42 Acetaminophen 325 Mg Tab PO 650 mg Q6H PRN Administration Pain, Mild (1-3) Amoxicillin 500 mg 04/24/20 16:31 04/24/20 21:12 Amoxicillin 500 Mg Cap PO 04/27/20 23:59 500 mg Q8HR CELIA Administration Protocol Divalproex Sodium 500 mg 04/23/20 14:00 04/24/20 20:[address] 500 Mg Tab PO 500 mg TID CELIA Administration Fluoxetine HCl 20 mg 04/24/20 10:00 04/24/20 10:06 Fluoxetine 20 Mg Cap PO 20 mg QDAY CELIA Administration Levalbuterol HCl 0.63 mg 04/24/20 12:25 04/24/20 14:35 Levalbuterol 0.63 Mg/3 Ml Nebu IH 0.63 mg Q8H PRN Administration Shortness Of Breath Lorazepam 2 mg 04/22/20 10:02 04/22/20 18:16 Lorazepam 2 Mg/Ml Vial IM 2 mg Q4H PRN Administration Agitation Melatonin 5 mg 04/24/20 22:00 04/24/20 21:14 Melatonin 5 Mg Tab PO 5 mg QHS CELIA Administration Olanzapine 10 mg 04/24/20 10:00 04/24/20 10:06 Olanzapine 10 Mg Tab PO 10 mg DAILY CELIA Administration Quetiapine Fumarate 100 mg 04/24/20 22:00 04/24/20 21:11 Quetiapine 100 Mg Tab PO 100 mg QHS CELIA Administration Zolpidem Tartrate 5 mg 04/24/20 22:00 04/24/20 21:11 Zolpidem 5 Mg Tab PO 5 mg QHS CELIA Administration
--- NOTE | 2020-04-24 21:49 | Progress Note ---
Assessment and Plan - Patient Problems (1) Vascular dementia with behavioral disturbance Current Visit: Yes Status: Acute Plan to address problem: Verbal prompting, verbal redirection, benzodiazepine therapy as clinically indicated, supportive care. (2) Cerebral atherosclerosis Current Visit: Yes Status: Acute Plan to address problem: Risk factor reduction, antiplatelet therapy as clinically indicated, supportive care. (3) Congestion of nasal sinus Current Visit: Yes Status: Acute Plan to address problem: Empirical antibiotic therapy, supportive care. Tylenol as needed History Interval history: 69 YO Male with Vascular Dementia with Behavioral Disturbance, Cerebral Atherosclerosis admitted to [facility] for Psychiatric stabilization. Patient seen and evaluated in the recreation room. Patient resting comfortably. Patient denies pain. Nursing staff report fever to 102. However repeat temperature check reveals temperature between 97 and 100 F. Chest x-ray ordered. Patient treated with empiric antibiotic therapy.. Patient cooperative with exam and interview. Hospitalist Physical - Constitutional Vitals: Temp Pulse Resp BP Pulse Ox 99.2 F 88 18 125/53 99 04/24/20 08:58 04/24/20 14:41 04/24/20 17:42 04/24/20 08:58 04/24/20 08:58 General appearance: Present: no acute distress, well-nourished - EENT Eyes: Present: PERRL, EOM intact ENT: hearing intact - Neck Neck: Present: supple - Respiratory Respiratory effort: normal Respiratory: bilateral: CTA - Cardiovascular Rhythm: regular - Extremities Extremities: no ischemia Peripheral Pulses: within normal limits - Abdominal General gastrointestinal: soft, non-tender, non-distended - Integumentary Integumentary: Present: clear, dry - Psychiatric Psychiatric: cooperative - Neurologic Neurologic: CNII-XII intact Results - Labs Labs: Laboratory Last Values POC Glucose 103 mg/dL (70-105) 04/24/20 12:47 Triglycerides 94 mg/dL (2-149) 04/19/20 06:14 Cholesterol 140 mg/dL (50-199) 04/19/20 06:14 LDL Cholesterol Direct 61 mg/dL (50-130) 04/19/20 06:14 HDL Cholesterol 61 mg/dL (40-59) H 04/19/20 06:14 Cholesterol/HDL Ratio 2.29 % 04/19/20 06:14 TSH 2.660 mlU/mL (0.270-4.200) 04/19/20 06:14 Sanchez/IV: Voiding Method Toilet Active Medications - Current Medications Current Medications: Generic Name Dose Route Start Last Admin Trade Name Freq PRN Reason Stop Dose Admin Acetaminophen 650 mg 04/24/20 16:31 04/24/20 17:42 Acetaminophen 325 Mg Tab PO 650 mg Q6H PRN Administration Pain, Mild (1-3) Amoxicillin 500 mg 04/24/20 16:31 04/24/20 21:12 Amoxicillin 500 Mg Cap PO 04/27/20 23:59 500 mg Q8HR CELIA Administration Protocol Divalproex Sodium 500 mg 04/23/20 14:00 04/24/20 20:[address] 500 Mg Tab PO 500 mg TID CELIA Administration Fluoxetine HCl 20 mg 04/24/20 10:00 04/24/20 10:06 Fluoxetine 20 Mg Cap PO 20 mg QDAY CELIA Administration Levalbuterol HCl 0.63 mg 04/24/20 12:25 04/24/20 14:35 Levalbuterol 0.63 Mg/3 Ml Nebu IH 0.63 mg Q8H PRN Administration Shortness Of Breath Lorazepam 2 mg 04/22/20 10:02 04/22/20 18:16 Lorazepam 2 Mg/Ml Vial IM 2 mg Q4H PRN Administration Agitation Melatonin 5 mg 04/24/20 22:00 04/24/20 21:14 Melatonin 5 Mg Tab PO 5 mg QHS CELIA Administration Olanzapine 10 mg 04/24/20 10:00 04/24/20 10:06 Olanzapine 10 Mg Tab PO 10 mg DAILY CELIA Administration Quetiapine Fumarate 100 mg 04/24/20 22:00 04/24/20 21:11 Quetiapine 100 Mg Tab PO 100 mg QHS CELIA Administration Zolpidem Tartrate 5 mg 04/24/20 22:00 04/24/20 21:11 Zolpidem 5 Mg Tab PO 5 mg QHS CELIA Administration
[2020-04-24] MEDS ORDERED: MIRTAZAPINE 15 MG TAB PO SCH (22:00)
[2020-04-24] MEDS ORDERED: QUEtiapine 25 MG TAB PO SCH (22:00)
[2020-04-25] MEDS: AMOXICILLIN 500 MG CAP PO SCH ×3 (06:10→21:29)
--- NOTE | 2020-04-25 07:41 | Progress Note ---
Subjective Date of service: 04/25/20 Principal diagnosis: Schizophrenia Subjective Comment: Per Psych Nurse: Pt was alert, calm and cooperative. Pt reported that he was feeling better during assessment. Pt spent the entire shift in his room. Pt ate all his snack. Pt slept about 2-3 hours. pt was present for full duration of group and actively engaged. when soa integration architect asked how pt was doing today, pt replied "cold". pt's interaction with peers was good. experienced talking to self during group and when redirected by soa integration architect, pt stated "I am talking to whomever will listen. Most of the time it's José or God". pt's velvet coloring page of choice stated "Good vibes only". pt was not able to finish her artwork and was reassured that he would be able to finish today in next group session. In group, pt shared that he wrote a note to a peer. soa integration architect asked to view the note and pt was cooperative. The note read as follows "I Grabiel, do not inflict pain, basically. I promise to leave the past behind or be prosecuted. The bad things behind. I will cooperate with authorities to be placed wherever ( as long as comfortable). Women Rule: Jer 31:20-26 IN[employer] Travel Version. Signed ". When soa integration architect asked what this letter was about, pt stated that the peer " needs to sign it". Psych Progress HPI Patient seen this AM, appears calm and cooperative, improved restlessness and irritability but impulsive and hyperverbal, patient acknowledged me this AM, showed me his drawings and narrated the meanings behind each drawing, patient is more accepting to treatment and not argumentative about medications and inpatient stay. Pt still obessed with bible verses Patient denies hearing voices, denies AVH. Reason for continuing inpatient treatment: Deparkote levels at therapeutic levels, hyperthermia reported by nurse, no acute concern for serotonin syndrome, no hyperreflexia, no rigidity and no diaphoresis reported but will hold off Fluoxetine at the moment and observe. Mini mental status of 23 using SLUMS for mild dementia REVIEW OF SYSTEMS Constitutional: Negative for weight loss ENT: Negative for stridor Respiratory: Negative for cough or hemoptysis All other systems reviewed and are negative MENTAL STATUS EXAMINATION General Appearance and Behavior: Age appropriate, good hygiene, wearing appropriate clothes, goodeye contact Cooperation: cooperative Psychomotor Behavior: Psychomotor normal Mood: "im feeling better" Affect and affective range: congruent with mood Thought Process: illogical, incoherent disorganized at times Thought Content: obsessions Speech: Normal rate, loud volume and rhythm Suicidal Ideation: Denies at present Homicidal Ideation: Denies Hallucinations: Denies Delusions: None elicited Impulse Control: Impaired Insight and Judgment: impaired insight and judgment Memory: Impaired Attention: impaired Orientation: Alert, oriented Assessment and Plan (1) Schizophrenia (2) Noncompliance with other medical treatments and regimen Treatment Plan Mini mental status of 23 using SLUMS for mild dementia Stopped Fluoxetine, due to hyperthermia thou minimal clinical signs for serotonin induced hyperthermia Patient admitted for inpatient psychiatric evaluation, medication adjustment and close monitoring The patient's behavior, mood, sleep and appetite will be closely monitored. Patient enrolled in individual and group therapeutic sessions and encouraged to attend. Patient provided with a safe and structured environment. Patient's physical health needs will be addressed by the Hospitalist. Hospitalist Consulted Labs including CBC, CMP, Lipid profile and Hemoglobin A1C levels ordered for baseline reference Social Assessment will be completed and the Sleeve Maker will work with patient and family to ensure a suitable and safe disposition Medication adjustment will be made as clinically indicated IM geodon 2 doses 10 mg for today. Increased Depakote DR 500 mg TID Increased Olanzapine 10mg po daily Usual Wellness Zoroastrian/Preservation: - Start Trazodone 50 mg po QHS & 50 mg po QHS PRN between 10 PM & 2 AM for insomnia - Start Melatonin 5 mg po QHS to promote circadian rhythm - Start [place]-3 for brain health, reduce impulsivity, and as adjunctive treatment for mood disorder, continue upon discharge given overall benefits. - Start B1 prophylaxis with 200 mg po for 5 days The patient agreed on the treatment plan, understood the risk, benefit, alternative treatment, potential consequence of no treatment, and gave informed consent. Estimated days: 3 Post hospital care: Outpatient Case staffed with Dr. Briceño. Medications and Allergies Allergies Allergy/AdvReac Type Severity Reaction Status Date / Time No Known Allergies Allergy Verified 04/15/20 10:56 Home Medications Medication Instructions Recorded Confirmed Last Taken Type Unobtainable 04/18/20 04/18/20 Unknown History Active Meds: Active Medications Acetaminophen (Acetaminophen 325 Mg Tab) 650 mg PO Q6H PRN PRN Reason: Pain, Mild (1-3) Last Admin: 04/24/20 17:42 Dose: 650 mg Documented by: Amoxicillin (Amoxicillin 500 Mg Cap) 500 mg PO Q8HR [facility]; Protocol Stop: 04/27/20 23:59 Last Admin: 04/25/20 06:10 Dose: 500 mg Documented by: Divalproex Sodium (Divalproex Dr 500 Mg Tab) 500 mg PO TID [facility] Last Admin: 04/24/20 20:37 Dose: 500 mg Documented by: Fluoxetine HCl (Fluoxetine 20 Mg Cap) 20 mg PO QDAY [facility] Last Admin: 04/24/20 10:06 Dose: 20 mg Documented by: Levalbuterol HCl (Levalbuterol 0.63 Mg/3 Ml Nebu) 0.63 mg IH Q8H PRN PRN Reason: Shortness Of Breath Last Admin: 04/24/20 14:35 Dose: 0.63 mg Documented by: Lorazepam (Lorazepam 2 Mg/Ml Vial) 2 mg IM Q4H PRN PRN Reason: Agitation Last Admin: 04/22/20 18:16 Dose: 2 mg Documented by: Melatonin (Melatonin 5 Mg Tab) 5 mg PO QHS [facility] Last Admin: 04/24/20 21:14 Dose: 5 mg Documented by: Olanzapine (Olanzapine 10 Mg Tab) 10 mg PO DAILY [facility] Last Admin: 04/24/20 10:06 Dose: 10 mg Documented by: Quetiapine Fumarate (Quetiapine 100 Mg Tab) 100 mg PO QHS [facility] Last Admin: 04/24/20 21:11 Dose: 100 mg Documented by: Zolpidem Tartrate (Zolpidem 5 Mg Tab) 5 mg PO QHS [facility] Last Admin: 04/24/20 21:11 Dose: 5 mg Documented by: Results - Results Labs/Vitals: Laboratory Last Values POC Glucose 103 mg/dL (70-105) 04/24/20 12:47 Triglycerides 94 mg/dL (2-149) 04/19/20 06:14 Cholesterol 140 mg/dL (50-199) 04/19/20 06:14 LDL Cholesterol Direct 61 mg/dL (50-130) 04/19/20 06:14 HDL Cholesterol 61 mg/dL (40-59) H 04/19/20 06:14 Cholesterol/HDL Ratio 2.29 % 04/19/20 06:14 TSH 2.660 mlU/mL (0.270-4.200) 04/19/20 06:14 Valproic Acid 69.8 ug/mL (50-100) 04/25/20 06:24 Last Vital Signs Temp 99.4 F 04/24/20 22:00 Pulse 90 04/24/20 22:00 Resp 18 04/24/20 22:00 BP 118/55 04/24/20 22:00 Pulse Ox 94 04/24/20 22:00
[2020-04-25] MEDS ORDERED: FLUoxetine 20 MG CAP PO SCH (08:08)
[2020-04-25] MEDS: DIVALPROEX DR 500 MG TAB PO SCH ×3 (08:41→20:11)
[2020-04-25] MEDS: ACETAMINOPHEN 325 MG TAB PO SCH ×3 (09:24→18:13)
[2020-04-25] MEDS: ZOLPIDEM 5 MG TAB PO SCH (21:26)
[2020-04-25] MEDS: QUEtiapine 100 MG TAB PO SCH (21:27)
[2020-04-25] MEDS: MELATONIN 5 MG TAB PO SCH (21:28)
[2020-04-26] MEDS: AMOXICILLIN 500 MG CAP PO SCH ×3 (05:25→21:00)
--- NOTE | 2020-04-26 07:49 | Progress Note ---
Subjective Date of service: 04/26/20 Principal diagnosis: Schizophrenia Subjective Comment: Per Psych Nurse: pt has been compliant w/ meds and cooperative w/ staff direction. pt remains on contact isolation for elevated temp of 101.6. Elevated temp has been reported to Dr. Pete. pt has been calm and pleasant. pt is independent w/ ADL's, has a good appetite and steady gait. Close monitoring continues. Psych Progress HPI Mr Pascal seen this AM in room, about to shower, was very nice this AM, requested for clean clothes, and towels. Patient reports doing very well, denies any medication concerns or side effects. Reason for continuing inpatient treatment: Deparkote levels at therapeutic levels, hyperthermia reported by nurse yesterday, covid test pending, no acute concern for serotonin syndrome, no hyperreflexia, no rigidity and no diaphoresis reported but will hold off Fluoxetine at the moment and observe. Mini mental status of 23 using SLUMS for mild dementia REVIEW OF SYSTEMS Constitutional: Negative for weight loss ENT: Negative for stridor Respiratory: Negative for cough or hemoptysis All other systems reviewed and are negative MENTAL STATUS EXAMINATION General Appearance and Behavior: Age appropriate, good hygiene, wearing appropriate clothes, goodeye contact Cooperation: cooperative Psychomotor Behavior: Psychomotor normal Mood: "im feeling better" Affect and affective range: congruent with mood Thought Process: improving thought process, logical demands, goal directed and fluent Thought Content: obsessions Speech: Normal rate, volume and rhythm Suicidal Ideation: Denies at present Homicidal Ideation: Denies Hallucinations: Denies Delusions: None elicited Impulse Control: Impaired Insight and Judgment: improved insight and judgment Memory: Impaired Attention: impaired Orientation: Alert, oriented Assessment and Plan (1) Schizophrenia (2) Noncompliance with other medical treatments and regimen Treatment Plan Mini mental status of 23 using SLUMS for mild dementia Stopped Fluoxetine, due to hyperthermia thou minimal clinical signs for ser otonin induced hyperthermia Patient admitted for inpatient psychiatric evaluation, medication adjustment and close monitoring The patient's behavior, mood, sleep and appetite will be closely monitored. Patient enrolled in individual and group therapeutic sessions and encouraged to attend. Patient provided with a safe and structured environment. Patient's physical health needs will be addressed by the Hospitalist. Hospitalist Consulted Labs including CBC, CMP, Lipid profile and Hemoglobin A1C levels ordered for baseline reference Social Assessment will be completed and the Metal Products Fabricator Assembler will work with patient and family to ensure a suitable and safe disposition Medication adjustment will be made as clinically indicated IM geodon 2 doses 10 mg for today. Continue current medications. Usual Wellness Sabianism/Preservation: - Start Trazodone 50 mg po QHS & 50 mg po QHS PRN between 10 PM & 2 AM for insomnia - Start Melatonin 5 mg po QHS to promote circadian rhythm - Start [place]-3 for brain health, reduce impulsivity, and as adjunctive treatment for mood disorder, continue upon discharge given overall benefits. - Start B1 prophylaxis with 200 mg po for 5 days The patient agreed on the treatment plan, understood the risk, benefit, alternative treatment, potential consequence of no treatment, and gave informed consent. Estimated days: 2 Post hospital care: Outpatient Case staffed with Dr. Briceño. Medications and Allergies Allergies Allergy/AdvReac Type Severity Reaction Status Date / Time No Known Allergies Allergy Verified 04/15/20 10:56 Home Medications Medication Instructions Recorded Confirmed Last Taken Type Unobtainable 04/18/20 04/18/20 Unknown History Active Meds: Active Medications Amoxicillin (Amoxicillin 500 Mg Cap) 500 mg PO Q8HR [facility]; Protocol Stop: 04/27/20 23:59 Last Admin: 04/26/20 05:25 Dose: 500 mg Documented by: Divalproex Sodium (Divalproex Dr 500 Mg Tab) 500 mg PO TID [facility] Last Admin: 04/25/20 20:11 Dose: 500 mg Documented by: Levalbuterol HCl (Levalbuterol 0.63 Mg/3 Ml Nebu) 0.63 mg IH Q8H PRN PRN Reason: Shortness Of Breath Last Admin: 04/24/20 14:35 Dose: 0.63 mg Documented by: Lorazepam (Lorazepam 2 Mg/Ml Vial) 2 mg IM Q4H PRN PRN Reason: Agitation Last Admin: 04/22/20 18:16 Dose: 2 mg Documented by: Melatonin (Melatonin 5 Mg Tab) 5 mg PO QHS [facility] Last Admin: 04/25/20 21:28 Dose: 5 mg Documented by: Olanzapine (Olanzapine 10 Mg Tab) 10 mg PO DAILY [facility] Last Admin: 04/25/20 09:24 Dose: 10 mg Documented by: Quetiapine Fumarate (Quetiapine 100 Mg Tab) 100 mg PO QHS [facility] Last Admin: 04/25/20 21:27 Dose: 100 mg Documented by: Zolpidem Tartrate (Zolpidem 5 Mg Tab) 5 mg PO QHS [facility] Last Admin: 04/25/20 21:26 Dose: 5 mg Documented by: Results - Results Labs/Vitals: Laboratory Last Values POC Glucose 103 mg/dL (70-105) 04/24/20 12:47 Triglycerides 94 mg/dL (2-149) 04/19/20 06:14 Cholesterol 140 mg/dL (50-199) 04/19/20 06:14 LDL Cholesterol Direct 61 mg/dL (50-130) 04/19/20 06:14 HDL Cholesterol 61 mg/dL (40-59) H 04/19/20 06:14 Cholesterol/HDL Ratio 2.29 % 04/19/20 06:14 TSH 2.660 mlU/mL (0.270-4.200) 04/19/20 06:14 Valproic Acid 69.8 ug/mL (50-100) 04/25/20 06:24 Last Vital Signs Temp 101.6 F H 04/25/20 07:39 Pulse 91 H 04/25/20 07:39 Resp 18 04/25/20 07:39 BP 100/53 04/25/20 07:39 Pulse Ox 95 04/25/20 07:39
[2020-04-26] MEDS: DIVALPROEX DR 500 MG TAB PO SCH ×3 (09:42→21:00)
[2020-04-26] MEDS: QUEtiapine 100 MG TAB PO SCH (21:00)
[2020-04-26] MEDS: ZOLPIDEM 5 MG TAB PO SCH (21:00)
[2020-04-26] MEDS: MELATONIN 5 MG TAB PO SCH (21:00)
[2020-04-27] MEDS: AMOXICILLIN 500 MG CAP PO SCH ×3 (05:40→21:54)
--- NOTE | 2020-04-27 07:46 | Progress Note ---
Subjective Date of service: 04/27/20 Principal diagnosis: Schizophrenia Subjective Comment: Per Psych Nurse: Patient was calm and cooperative, no aggressive behaviour noted, he is medications compliant,with no resistance, pt denies hearing voices or seeing things at this time, denies si/hi, no acute distress noted, will continue to monitor. Psych Progress HPI Patient seen in room this AM, patient says he heard about his positive covid results, and he like to see a paper that proves it. Patient informed covid results was confirmed by lab test, patient became displeased and was loud requesting he wants another paper prove besides the initial paper notification he got. Reason for continuing inpatient treatment: Patient positive for covid which explains elevated temp, minimal concerns for SS based on current medications. , Deparkote levels at therapeutic levels, I will continue to observe for mood stability. Mini mental status of 23 using SLUMS for mild dementia REVIEW OF SYSTEMS Constitutional: Negative for weight loss ENT: Negative for stridor Respiratory: Negative for cough or hemoptysis All other systems reviewed and are negative MENTAL STATUS EXAMINATION General Appearance and Behavior: Age appropriate, good hygiene, wearing appropriate clothes, goodeye contact Cooperation: cooperative Psychomotor Behavior: Psychomotor normal Mood: "im feeling better" Affect and affective range: congruent with mood Thought Process: improving thought process, logical demands, goal directed and fluent Thought Content: obsessions Speech: Normal rate, volume and rhythm Suicidal Ideation: Denies at present Homicidal Ideation: Denies Hallucinations: Denies Delusions: None elicited Impulse Control: Impaired Insight and Judgment: improved insight and judgment Memory: Impaired Attention: impaired Orientation: Alert, oriented Assessment and Plan (1) Schizophrenia (2) Noncompliance with other medical treatments and regimen Treatment Plan Mini mental status of 23 using SLUMS for mild dementia Restarted Fluoxetine, hyperthermia due to covid Patient admitted for inpatient psychiatric evaluation, medication adjustment and close monitoring The patient's behavior, mood, sleep and appetite will be closely monitored. Patient enrolled in individual and group therapeutic sessions and encouraged to attend. Patient provided with a safe and structured environment. Patient's physical health needs will be addressed by the Hospitalist. Hospitalist Consulted Labs including CBC, CMP, Lipid profile and Hemoglobin A1C levels ordered for baseline reference Social Assessment will be completed and the Book Author will work with patient and family to ensure a suitable and safe disposition Medication adjustment will be made as clinically indicated IM geodon 2 doses 10 mg for today. Continue current medications. Usual Wellness Adventism/Preservation: - Start Trazodone 50 mg po QHS & 50 mg po QHS PRN between 10 PM & 2 AM for insomnia - Start Melatonin 5 mg po QHS to promote circadian rhythm - Start [place]-3 for brain health, reduce impulsivity, and as adjunctive treatment for mood disorder, continue upon discharge given overall benefits. - Start B1 prophylaxis with 200 mg po for 5 days The patient agreed on the treatment plan, understood the risk, benefit, alternative treatment, potential consequence of no treatment, and gave informed consent. Estimated days: 2 Post hospital care: Outpatient Case staffed with Dr. Briceño. Medications and Allergies Allergies Allergy/AdvReac Type Severity Reaction Status Date / Time No Known Allergies Allergy Verified 04/15/20 10:56 Home Medications Medication Instructions Recorded Confirmed Last Taken Type Unobtainable 04/18/20 04/18/20 Unknown History Active Meds: Active Medications Amoxicillin (Amoxicillin 500 Mg Cap) 500 mg PO Q8HR [facility]; Protocol Stop: 04/27/20 23:59 Last Admin: 04/27/20 05:40 Dose: 500 mg Documented by: Divalproex Sodium (Divalproex Dr 500 Mg Tab) 500 mg PO TID [facility] Last Admin: 04/26/20 21:00 Dose: 500 mg Documented by: Levalbuterol HCl (Levalbuterol 0.63 Mg/3 Ml Nebu) 0.63 mg IH Q8H PRN PRN Reason: Shortness Of Breath Last Admin: 04/24/20 14:35 Dose: 0.63 mg Documented by: Lorazepam (Lorazepam 2 Mg/Ml Vial) 2 mg IM Q4H PRN PRN Reason: Agitation Last Admin: 04/22/20 18:16 Dose: 2 mg Documented by: Melatonin (Melatonin 5 Mg Tab) 5 mg PO QHS [facility] Last Admin: 04/26/20 21:00 Dose: 5 mg Documented by: Olanzapine (Olanzapine 10 Mg Tab) 10 mg PO DAILY [facility] Last Admin: 04/26/20 09:42 Dose: 10 mg Documented by: Quetiapine Fumarate (Quetiapine 100 Mg Tab) 100 mg PO QHS [facility] Last Admin: 04/26/20 21:00 Dose: 100 mg Documented by: Zolpidem Tartrate (Zolpidem 5 Mg Tab) 5 mg PO QHS [facility] Last Admin: 04/26/20 21:00 Dose: 5 mg Documented by: Results - Results Labs/Vitals: Laboratory Last Values POC Glucose 103 mg/dL (70-105) 04/24/20 12:47 Triglycerides 94 mg/dL (2-149) 04/19/20 06:14 Cholesterol 140 mg/dL (50-199) 04/19/20 06:14 LDL Cholesterol Direct 61 mg/dL (50-130) 04/19/20 06:14 HDL Cholesterol 61 mg/dL (40-59) H 04/19/20 06:14 Cholesterol/HDL Ratio 2.29 % 04/19/20 06:14 TSH 2.660 mlU/mL (0.270-4.200) 04/19/20 06:14 Valproic Acid 69.8 ug/mL (50-100) 04/25/20 06:24 Coronavirus (PCR) Positive (Negative) A 04/26/20 10:34 Last Vital Signs Temp 99.2 F 04/26/20 22:00 Pulse 90 04/26/20 22:00 Resp 14 04/26/20 22:00 BP 136/47 04/26/20 22:00 Pulse Ox 95 04/26/20 22:00
[2020-04-27] MEDS: FLUoxetine 20 MG CAP PO SCH (10:35)
[2020-04-27] MEDS: DIVALPROEX DR 500 MG TAB PO SCH ×3 (10:35→21:55)
[2020-04-27] MEDS: LORazepam 2 MG/ML VIAL IM PRN (16:15)
[2020-04-27] MEDS: MELATONIN 5 MG TAB PO SCH (21:55)
[2020-04-27] MEDS: ZOLPIDEM 5 MG TAB PO SCH (21:55)
[2020-04-27] MEDS: QUEtiapine 100 MG TAB PO SCH (21:55)
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
[2020-04-28] MEDS: FLUoxetine 20 MG CAP PO SCH (10:58)
[2020-04-28] MEDS: DIVALPROEX DR 500 MG TAB PO SCH ×3 (10:58→21:48)
[2020-04-28] MEDS: QUEtiapine 100 MG TAB PO SCH (21:47)
[2020-04-28] MEDS: ZOLPIDEM 5 MG TAB PO SCH (21:48)
[2020-04-28] MEDS: MELATONIN 5 MG TAB PO SCH (21:50)
--- NOTE | 2020-04-29 08:29 | Progress Note ---
Subjective Date of service: 04/29/20 Principal diagnosis: Schizophrenia Subjective Comment: During my interview with the patient this morning, he is in his room, awake. The patient is washing his face at the sink. He denies SI/HI. He also denies hallucinations of any kind. He describes his mood as "pretty good." Reason for continued inpatient treatment: The patient is positive for COVID and waiting on placement. REVIEW OF SYSTEMS Constitutional: Negative for weight loss ENT: Negative for stridor Respiratory: Negative for cough or hemoptysis All other systems reviewed and are negative MENTAL STATUS EXAMINATION General Appearance and Behavior: Age appropriate, good hygiene, wearing appropriate clothes, poor eye contact Cooperation: Participating/engaged Psychomotor Behavior: Psychomotor normal Mood: "pretty good" Affect and affective range: congruent with stated mood Thought Process: illogical, disorganized at times Thought Content: hallucinations Speech: Normal rate, volume and rhythm Suicidal Ideation: Denies at present Homicidal Ideation: Denies Hallucinations: Denies Delusions: None elicited Impulse Control: Impaired Insight and Judgment: impaired insight and judgment Memory: Impaired Attention: impaired Orientation: Alert, oriented Assessment and Plan (1) Schizophrenia (2) Noncompliance with other medical treatments and regimen Treatment Plan Patient admitted for inpatient psychiatric evaluation, medication adjustment and close monitoring The patient's behavior, mood, sleep and appetite will be closely monitored. Patient enrolled in individual and group therapeutic sessions and encouraged to attend. Patient provided with a safe and structured environment. Patient's physical health needs will be addressed by the Hospitalist. Hospitalist Consulted Labs including CBC, CMP, Lipid profile and Hemoglobin A1C levels ordered for baseline reference Social Assessment will be completed and the Upholstery Estimator will work with patient and family to ensure a suitable and safe disposition Medication adjustment will be made as clinically indicated No changes made Usual Wellness Adventism/Preservation: - Start Trazodone 50 mg po QHS & 50 mg po QHS PRN between 10 PM & 2 AM for insomnia - Start Melatonin 5 mg po QHS to promote circadian rhythm - Start [place]-3 for brain health, reduce impulsivity, and as adjunctive treatment for mood disorder, continue upon discharge given overall benefits. - Start B1 prophylaxis with 200 mg po for 5 days The patient agreed on the treatment plan, understood the risk, benefit, alternative treatment, potential consequence of no treatment, and gave informed consent. Estimated days: 3 Post hospital care: Outpatient Case staffed with Dr. Briceño. Medications and Allergies Allergies Allergy/AdvReac Type Severity Reaction Status Date / Time No Known Allergies Allergy Verified 04/15/20 10:56 Home Medications Medication Instructions Recorded Confirmed Last Taken Type Unobtainable 04/18/20 04/18/20 Unknown History Active Meds: Active Medications Divalproex Sodium (Divalproex Dr 500 Mg Tab) 500 mg PO TID [facility] Last Admin: 04/28/20 21:48 Dose: 500 mg Documented by: Fluoxetine HCl (Fluoxetine 20 Mg Cap) 20 mg PO QDAY [facility] Last Admin: 04/28/20 10:58 Dose: 20 mg Documented by: Levalbuterol HCl (Levalbuterol 0.63 Mg/3 Ml Nebu) 0.63 mg IH Q8H PRN PRN Reason: Shortness Of Breath Last Admin: 04/24/20 14:35 Dose: 0.63 mg Documented by: Lorazepam (Lorazepam 2 Mg/Ml Vial) 2 mg IM Q4H PRN PRN Reason: Agitation Last Admin: 04/27/20 16:15 Dose: 2 mg Documented by: Melatonin (Melatonin 5 Mg Tab) 5 mg PO QHS [facility] Last Admin: 04/28/20 21:50 Dose: 5 mg Documented by: Olanzapine (Olanzapine 10 Mg Tab) 10 mg PO DAILY [facility] Last Admin: 04/28/20 10:58 Dose: 10 mg Documented by: Quetiapine Fumarate (Quetiapine 100 Mg Tab) 100 mg PO QHS [facility] Last Admin: 04/28/20 21:47 Dose: 100 mg Documented by: Zolpidem Tartrate (Zolpidem 5 Mg Tab) 5 mg PO QHS [facility] Last Admin: 04/28/20 21:48 Dose: 5 mg Documented by: Results - Results Labs/Vitals: Laboratory Last Values POC Glucose 151 mg/dL (70-105) H 04/28/20 21:59 Triglycerides 94 mg/dL (2-149) 04/19/20 06:14 Cholesterol 140 mg/dL (50-199) 04/19/20 06:14 LDL Cholesterol Direct 61 mg/dL (50-130) 04/19/20 06:14 HDL Cholesterol 61 mg/dL (40-59) H 04/19/20 06:14 Cholesterol/HDL Ratio 2.29 % 04/19/20 06:14 TSH 2.660 mlU/mL (0.270-4.200) 04/19/20 06:14 Valproic Acid 69.8 ug/mL (50-100) 04/25/20 06:24 Coronavirus (PCR) Positive (Negative) A 04/26/20 10:34 Last Vital Signs Temp 100.1 F H 04/28/20 22:00 Pulse 83 04/28/20 22:00 Resp 16 04/28/20 22:00 BP 135/60 04/28/20 22:00 Pulse Ox 96 04/28/20 22:00
[2020-04-29] MEDS: DIVALPROEX DR 500 MG TAB PO SCH ×3 (11:30→20:28)
[2020-04-29] MEDS: FLUoxetine 20 MG CAP PO SCH (11:30)
[2020-04-29] MEDS: QUEtiapine 100 MG TAB PO SCH (21:15)
[2020-04-29] MEDS: MELATONIN 5 MG TAB PO SCH (21:15)
[2020-04-29] MEDS: ZOLPIDEM 5 MG TAB PO SCH (21:15)
--- NOTE | 2020-04-30 09:27 | Progress Note ---
Subjective Date of service: 04/30/20 Principal diagnosis: Schizophrenia Subjective Comment: During my interview with the patient this morning, he is in his room, awake. The patient says he had a good night. He also denies SI/HI or hallucinations of any kind. Reason for continued inpatient treatment: The patient is positive for COVID and waiting on placement. REVIEW OF SYSTEMS Constitutional: Negative for weight loss ENT: Negative for stridor Respiratory: Negative for cough or hemoptysis All other systems reviewed and are negative MENTAL STATUS EXAMINATION General Appearance and Behavior: Age appropriate, good hygiene, wearing appropriate clothes, poor eye contact Cooperation: Participating/engaged Psychomotor Behavior: Psychomotor normal Mood: "pretty good" Affect and affective range: congruent with stated mood Thought Process: illogical, disorganized at times Thought Content: hallucinations Speech: Normal rate, volume and rhythm Suicidal Ideation: Denies at present Homicidal Ideation: Denies Hallucinations: Denies Delusions: None elicited Impulse Control: Impaired Insight and Judgment: impaired insight and judgment Memory: Impaired Attention: impaired Orientation: Alert, oriented Assessment and Plan (1) Schizophrenia (2) Noncompliance with other medical treatments and regimen Treatment Plan Patient admitted for inpatient psychiatric evaluation, medication adjustment and close monitoring The patient's behavior, mood, sleep and appetite will be closely monitored. Patient enrolled in individual and group therapeutic sessions and encouraged to attend. Patient provided with a safe and structured environment. Patient's physical health needs will be addressed by the Hospitalist. Hospitalist Consulted Labs including CBC, CMP, Lipid profile and Hemoglobin A1C levels ordered for baseline reference Social Assessment will be completed and the Speech And Language Clinician will work with patient and family to ensure a suitable and safe disposition Medication adjustment will be made as clinically indicated No changes made Usual Wellness Rastafarian/Preservation: - Start Trazodone 50 mg po QHS & 50 mg po QHS PRN between 10 PM & 2 AM for insomnia - Start Melatonin 5 mg po QHS to promote circadian rhythm - Start [place]-3 for brain health, reduce impulsivity, and as adjunctive treatment for mood disorder, continue upon discharge given overall benefits. - Start B1 prophylaxis with 200 mg po for 5 days The patient agreed on the treatment plan, understood the risk, benefit, alternative treatment, potential consequence of no treatment, and gave informed consent. Estimated days: 3 Post hospital care: Outpatient Case staffed with Dr. Briceño. Medications and Allergies Allergies Allergy/AdvReac Type Severity Reaction Status Date / Time No Known Allergies Allergy Verified 04/15/20 10:56 Home Medications Medication Instructions Recorded Confirmed Last Taken Type Unobtainable 04/18/20 04/18/20 Unknown History Active Meds: Active Medications Divalproex Sodium (Divalproex Dr 500 Mg Tab) 500 mg PO TID [facility] Last Admin: 04/29/20 20:28 Dose: 500 mg Documented by: Fluoxetine HCl (Fluoxetine 20 Mg Cap) 20 mg PO QDAY [facility] Last Admin: 04/29/20 11:30 Dose: 20 mg Documented by: Levalbuterol HCl (Levalbuterol 0.63 Mg/3 Ml Nebu) 0.63 mg IH Q8H PRN PRN Reason: Shortness Of Breath Last Admin: 04/24/20 14:35 Dose: 0.63 mg Documented by: Lorazepam (Lorazepam 2 Mg/Ml Vial) 2 mg IM Q4H PRN PRN Reason: Agitation Last Admin: 04/27/20 16:15 Dose: 2 mg Documented by: Melatonin (Melatonin 5 Mg Tab) 5 mg PO QHS [facility] Last Admin: 04/29/20 21:15 Dose: 5 mg Documented by: Olanzapine (Olanzapine 10 Mg Tab) 10 mg PO DAILY [facility] Last Admin: 04/29/20 11:30 Dose: 10 mg Documented by: Quetiapine Fumarate (Quetiapine 100 Mg Tab) 100 mg PO QHS [facility] Last Admin: 04/29/20 21:15 Dose: 100 mg Documented by: Zolpidem Tartrate (Zolpidem 5 Mg Tab) 5 mg PO QHS [facility] Last Admin: 04/29/20 21:15 Dose: 5 mg Documented by: Results - Results Labs/Vitals: Laboratory Last Values POC Glucose 151 mg/dL (70-105) H 04/28/20 21:59 Triglycerides 94 mg/dL (2-149) 04/19/20 06:14 Cholesterol 140 mg/dL (50-199) 04/19/20 06:14 LDL Cholesterol Direct 61 mg/dL (50-130) 04/19/20 06:14 HDL Cholesterol 61 mg/dL (40-59) H 04/19/20 06:14 Cholesterol/HDL Ratio 2.29 % 04/19/20 06:14 TSH 2.660 mlU/mL (0.270-4.200) 04/19/20 06:14 Valproic Acid 69.8 ug/mL (50-100) 04/25/20 06:24 Coronavirus (PCR) Positive (Negative) A 04/26/20 10:34 Last Vital Signs Temp 99.7 F H 04/29/20 20:30 Pulse 74 04/29/20 20:30 Resp 18 04/29/20 20:30 BP 135/52 04/29/20 20:30 Pulse Ox 97 04/29/20 20:30
[2020-04-30] MEDS: FLUoxetine 20 MG CAP PO SCH (10:47)
[2020-04-30] MEDS: DIVALPROEX DR 500 MG TAB PO SCH ×3 (10:47→20:52)
[2020-04-30] MEDS: QUEtiapine 100 MG TAB PO SCH (21:17)
[2020-04-30] MEDS: MELATONIN 5 MG TAB PO SCH (21:17)
[2020-04-30] MEDS: ZOLPIDEM 5 MG TAB PO SCH (21:17)
[2020-05-01] MEDS: DIVALPROEX DR 500 MG TAB PO SCH ×3 (08:35→20:48)
[2020-05-01] MEDS: FLUoxetine 20 MG CAP PO SCH (09:00)
--- NOTE | 2020-05-01 09:05 | Progress Note ---
Subjective Date of service: 05/01/20 Principal diagnosis: Schizophrenia Subjective Comment: During my interview with the patient this morning, he is in his room, awake. He is brushing his teeth. He says he's doing "well." The patient says he had a good night. He also denies SI/HI or hallucinations of any kind. Reason for continued inpatient treatment: The patient is positive for COVID and waiting on placement. REVIEW OF SYSTEMS Constitutional: Negative for weight loss ENT: Negative for stridor Respiratory: Negative for cough or hemoptysis All other systems reviewed and are negative MENTAL STATUS EXAMINATION General Appearance and Behavior: Age appropriate, good hygiene, wearing appropriate clothes, poor eye contact Cooperation: Participating/engaged Psychomotor Behavior: Psychomotor normal Mood: "well" Affect and affective range: congruent with stated mood Thought Process: illogical, disorganized at times Thought Content: hallucinations Speech: Normal rate, volume and rhythm Suicidal Ideation: Denies at present Homicidal Ideation: Denies Hallucinations: Denies Delusions: None elicited Impulse Control: Limited Insight and Judgment: Limited insight and judgment Memory: Limited Attention: Limited Orientation: Alert, oriented Assessment and Plan (1) Schizophrenia (2) Noncompliance with other medical treatments and regimen Treatment Plan Patient admitted for inpatient psychiatric evaluation, medication adjustment and close monitoring The patient's behavior, mood, sleep and appetite will be closely monitored. Patient enrolled in individual and group therapeutic sessions and encouraged to attend. Patient provided with a safe and structured environment. Patient's physical health needs will be addressed by the Hospitalist. Hospitalist Consulted Labs including CBC, CMP, Lipid profile and Hemoglobin A1C levels ordered for baseline reference Social Assessment will be completed and the Kitchen Stewardess will work with patien t and family to ensure a suitable and safe disposition Medication adjustment will be made as clinically indicated No changes made Usual Wellness Advent/Preservation: - Start Trazodone 50 mg po QHS & 50 mg po QHS PRN between 10 PM & 2 AM for insomnia - Start Melatonin 5 mg po QHS to promote circadian rhythm - Start [place]-3 for brain health, reduce impulsivity, and as adjunctive treatment for mood disorder, continue upon discharge given overall benefits. - Start B1 prophylaxis with 200 mg po for 5 days The patient agreed on the treatment plan, understood the risk, benefit, alternative treatment, potential consequence of no treatment, and gave informed consent. Estimated days: 3 Post hospital care: Outpatient Case staffed with Dr. Briceño. Medications and Allergies Allergies Allergy/AdvReac Type Severity Reaction Status Date / Time No Known Allergies Allergy Verified 04/15/20 10:56 Home Medications Medication Instructions Recorded Confirmed Last Taken Type Unobtainable 04/18/20 04/18/20 Unknown History Active Meds: Active Medications Divalproex Sodium (Divalproex Dr 500 Mg Tab) 500 mg PO TID [facility] Last Admin: 05/01/20 08:35 Dose: 500 mg Documented by: Fluoxetine HCl (Fluoxetine 20 Mg Cap) 20 mg PO QDAY [facility] Last Admin: 05/01/20 09:00 Dose: 20 mg Documented by: Levalbuterol HCl (Levalbuterol 0.63 Mg/3 Ml Nebu) 0.63 mg IH Q8H PRN PRN Reason: Shortness Of Breath Last Admin: 04/24/20 14:35 Dose: 0.63 mg Documented by: Lorazepam (Lorazepam 2 Mg/Ml Vial) 2 mg IM Q4H PRN PRN Reason: Agitation Last Admin: 04/27/20 16:15 Dose: 2 mg Documented by: Melatonin (Melatonin 5 Mg Tab) 5 mg PO QHS [facility] Last Admin: 04/30/20 21:17 Dose: 5 mg Documented by: Olanzapine (Olanzapine 10 Mg Tab) 10 mg PO DAILY [facility] Last Admin: 05/01/20 09:00 Dose: 10 mg Documented by: Quetiapine Fumarate (Quetiapine 100 Mg Tab) 100 mg PO QHS [facility] Last Admin: 04/30/20 21:17 Dose: 100 mg Documented by: Zolpidem Tartrate (Zolpidem 5 Mg Tab) 5 mg PO QHS [facility] Last Admin: 04/30/20 21:17 Dose: 5 mg Documented by: Results - Results Labs/Vitals: Laboratory Last Values POC Glucose 151 mg/dL (70-105) H 04/28/20 21:59 Triglycerides 94 mg/dL (2-149) 04/19/20 06:14 Cholesterol 140 mg/dL (50-199) 04/19/20 06:14 LDL Cholesterol Direct 61 mg/dL (50-130) 04/19/20 06:14 HDL Cholesterol 61 mg/dL (40-59) H 04/19/20 06:14 Cholesterol/HDL Ratio 2.29 % 04/19/20 06:14 TSH 2.660 mlU/mL (0.270-4.200) 04/19/20 06:14 Valproic Acid 69.8 ug/mL (50-100) 04/25/20 06:24 Coronavirus (PCR) Positive (Negative) A 04/26/20 10:34 Last Vital Signs Temp 100.0 F H 04/30/20 22:00 Pulse 87 04/30/20 22:00 Resp 14 04/30/20 22:00 BP 143/63 04/30/20 22:00 Pulse Ox 95 04/30/20 22:00
[2020-05-01] MEDS: QUEtiapine 100 MG TAB PO SCH (21:25)
[2020-05-01] MEDS: ZOLPIDEM 5 MG TAB PO SCH (21:25)
[2020-05-01] MEDS: MELATONIN 5 MG TAB PO SCH (21:25)
[2020-05-02] MEDS: DIVALPROEX DR 500 MG TAB PO SCH ×3 (08:19→20:43)
--- NOTE | 2020-05-02 09:51 | Progress Note ---
Subjective Date of service: 05/02/20 Principal diagnosis: Schizophrenia Subjective Comment: During my interview with the patient this morning, he is in his room, awake. He is lying down and says he's "just resting." He says he's doing "well." The patient says he had a good night. He also denies SI/HI or hallucinations of any kind. Reason for continued inpatient treatment: The patient is positive for COVID and waiting on placement. REVIEW OF SYSTEMS Constitutional: Negative for weight loss ENT: Negative for stridor Respiratory: Negative for cough or hemoptysis All other systems reviewed and are negative MENTAL STATUS EXAMINATION General Appearance and Behavior: Age appropriate, good hygiene, wearing appropriate clothes, poor eye contact Cooperation: Participating/engaged Psychomotor Behavior: Psychomotor normal Mood: "well" Affect and affective range: congruent with stated mood Thought Process: illogical, disorganized at times Thought Content: hallucinations Speech: Normal rate, volume and rhythm Suicidal Ideation: Denies at present Homicidal Ideation: Denies Hallucinations: Denies Delusions: None elicited Impulse Control: Limited Insight and Judgment: Limited insight and judgment Memory: Limited Attention: Limited Orientation: Alert, oriented Assessment and Plan (1) Schizophrenia (2) Noncompliance with other medical treatments and regimen Treatment Plan Patient admitted for inpatient psychiatric evaluation, medication adjustment and close monitoring The patient's behavior, mood, sleep and appetite will be closely monitored. Patient enrolled in individual and group therapeutic sessions and encouraged to attend. Patient provided with a safe and structured environment. Patient's physical health needs will be addressed by the Hospitalist. Hospitalist Consulted Labs including CBC, CMP, Lipid profile and Hemoglobin A1C levels ordered for baseline reference Social Assessment will be completed and the Compass Operator will work with patient and family to ensure a suitable and safe disposition Medication adjustment will be made as clinically indicated No changes made Usual Wellness Denominational/Preservation: - Start Trazodone 50 mg po QHS & 50 mg po QHS PRN between 10 PM & 2 AM for insomnia - Start Melatonin 5 mg po QHS to promote circadian rhythm - Start [place]-3 for brain health, reduce impulsivity, and as adjunctive treatment for mood disorder, continue upon discharge given overall benefits. - Start B1 prophylaxis with 200 mg po for 5 days The patient agreed on the treatment plan, understood the risk, benefit, alternative treatment, potential consequence of no treatment, and gave informed consent. Estimated days: 3 Post hospital care: Outpatient Case staffed with Dr. Briceño. Medications and Allergies Allergies Allergy/AdvReac Type Severity Reaction Status Date / Time No Known Allergies Allergy Verified 04/15/20 10:56 Home Medications Medication Instructions Recorded Confirmed Last Taken Type Unobtainable 04/18/20 04/18/20 Unknown History Active Meds: Active Medications Divalproex Sodium (Divalproex Dr 500 Mg Tab) 500 mg PO TID [facility] Last Admin: 05/01/20 20:48 Dose: 500 mg Documented by: Fluoxetine HCl (Fluoxetine 20 Mg Cap) 20 mg PO QDAY [facility] Last Admin: 05/01/20 09:00 Dose: 20 mg Documented by: Levalbuterol HCl (Levalbuterol 0.63 Mg/3 Ml Nebu) 0.63 mg IH Q8H PRN PRN Reason: Shortness Of Breath Last Admin: 04/24/20 14:35 Dose: 0.63 mg Documented by: Lorazepam (Lorazepam 2 Mg/Ml Vial) 2 mg IM Q4H PRN PRN Reason: Agitation Last Admin: 04/27/20 16:15 Dose: 2 mg Documented by: Melatonin (Melatonin 5 Mg Tab) 5 mg PO QHS [facility] Last Admin: 05/01/20 21:25 Dose: 5 mg Documented by: Olanzapine (Olanzapine 10 Mg Tab) 10 mg PO DAILY [facility] Last Admin: 05/01/20 09:00 Dose: 10 mg Documented by: Quetiapine Fumarate (Quetiapine 100 Mg Tab) 100 mg PO QHS [facility] Last Admin: 05/01/20 21:25 Dose: 100 mg Documented by: Zolpidem Tartrate (Zolpidem 5 Mg Tab) 5 mg PO QHS [facility] Last Admin: 05/01/20 21:25 Dose: 5 mg Documented by: Results - Results Labs/Vitals: Laboratory Last Values POC Glucose 72 mg/dL (70-105) 05/02/20 06:31 Triglycerides 94 mg/dL (2-149) 04/19/20 06:14 Cholesterol 140 mg/dL (50-199) 04/19/20 06:14 LDL Cholesterol Direct 61 mg/dL (50-130) 04/19/20 06:14 HDL Cholesterol 61 mg/dL (40-59) H 04/19/20 06:14 Cholesterol/HDL Ratio 2.29 % 12/23/20 06:14 TSH 2.660 mlU/mL (0.270-4.200) 04/19/20 06:14 Valproic Acid 69.8 ug/mL (50-100) 04/25/20 06:24 Coronavirus (PCR) Positive (Negative) A 04/26/20 10:34 Last Vital Signs Temp 99.4 F 05/01/20 20:05 Pulse 70 05/01/20 20:05 Resp 18 05/01/20 20:05 BP 125/52 05/01/20 20:05 Pulse Ox 98 05/01/20 20:05
[2020-05-02] MEDS: FLUoxetine 20 MG CAP PO SCH (11:19)
[2020-05-02] MEDS: MELATONIN 5 MG TAB PO SCH (22:29)
[2020-05-02] MEDS: QUEtiapine 100 MG TAB PO SCH (22:29)
[2020-05-02] MEDS: ZOLPIDEM 5 MG TAB PO SCH (22:29)
[2020-05-03] MEDS: DIVALPROEX DR 500 MG TAB PO SCH ×3 (08:56→20:41)
--- NOTE | 2020-05-03 08:58 | Progress Note ---
Subjective Date of service: 05/03/20 Principal diagnosis: Schizophrenia Subjective Comment: During my interview with the patient this morning, he is in his room, awake. He is a/o x 3. He is dressed and standing at his sink. The patient says he slept well last night. The patient also verbalizes feeling "well." He says "I had once problem, when I woke up and started to walk I felt a little wobbly. But it went away shortly." He is asking for his hair growth cream that he says is his his back. The patient denies SI/HI or hallucinations of any kind. Reason for continued inpatient treatment: The patient is clear from psych standpoint. He is positive for COVID and waiting on placement. REVIEW OF SYSTEMS Constitutional: Negative for weight loss ENT: Negative for stridor Respiratory: Negative for cough or hemoptysis All other systems reviewed and are negative MENTAL STATUS EXAMINATION General Appearance and Behavior: Age appropriate, good hygiene, wearing appropriate clothes, poor eye contact Cooperation: Participating/engaged Psychomotor Behavior: Psychomotor normal Mood: "well" Affect and affective range: congruent with stated mood Thought Process: illogical, disorganized at times Thought Content: hallucinations Speech: Normal rate, volume and rhythm Suicidal Ideation: Denies at present Homicidal Ideation: Denies Hallucinations: Denies Delusions: None elicited Impulse Control: Limited Insight and Judgment: Limited insight and judgment Memory: Limited Attention: Limited Orientation: Alert, oriented Assessment and Plan (1) Schizophrenia (2) Noncompliance with other medical treatments and regimen Treatment Plan Patient admitted for inpatient psychiatric evaluation, medication adjustment and close monitoring The patient's behavior, mood, sleep and appetite will be closely monitored. Patient enrolled in individual and group therapeutic sessions and encouraged to attend. Patient provided with a safe and structured environment. Patient's physical health needs will be addressed by the Hospitalist. Hospitalist Consulted Labs including CBC, CMP, Lipid profile and Hemoglobin A1C levels ordered for baseline reference Social Assessment will be completed and the Investment Accountant will work with patient and family to ensure a suitable and safe disposition Medication adjustment will be made as clinically indicated No changes made Usual Wellness Scientology/Preservation: - Start Trazodone 50 mg po QHS & 50 mg po QHS PRN between 10 PM & 2 AM for insomnia - Start Melatonin 5 mg po QHS to promote circadian rhythm - Start [place]-3 for brain health, reduce impulsivity, and as adjunctive treatment for mood disorder, continue upon discharge given overall benefits. - Start B1 prophylaxis with 200 mg po for 5 days The patient agreed on the treatment plan, understood the risk, benefit, alternative treatment, potential consequence of no treatment, and gave informed consent. Estimated days: 1 Post hospital care: Outpatient Case staffed with Dr. Briceño. Medications and Allergies Allergies Allergy/AdvReac Type Severity Reaction Status Date / Time No Known Allergies Allergy Verified 04/15/20 10:56 Home Medications Medication Instructions Recorded Confirmed Last Taken Type Unobtainable 04/18/20 04/18/20 Unknown History Active Meds: Active Medications Divalproex Sodium (Divalproex Dr 500 Mg Tab) 500 mg PO TID [facility] Last Admin: 05/03/20 08:56 Dose: 500 mg Documented by: Fluoxetine HCl (Fluoxetine 20 Mg Cap) 20 mg PO QDAY [facility] Last Admin: 05/02/20 11:19 Dose: 20 mg Documented by: Levalbuterol HCl (Levalbuterol 0.63 Mg/3 Ml Nebu) 0.63 mg IH Q8H PRN PRN Reason: Shortness Of Breath Last Admin: 04/24/20 14:35 Dose: 0.63 mg Documented by: Lorazepam (Lorazepam 2 Mg/Ml Vial) 2 mg IM Q4H PRN PRN Reason: Agitation Last Admin: 04/27/20 16:15 Dose: 2 mg Documented by: Melatonin (Melatonin 5 Mg Tab) 5 mg PO QHS [facility] Last Admin: 05/02/20 22:29 Dose: 5 mg Documented by: Olanzapine (Olanzapine 10 Mg Tab) 10 mg PO DAILY [facility] Last Admin: 05/02/20 11:19 Dose: 10 mg Documented by: Quetiapine Fumarate (Quetiapine 100 Mg Tab) 100 mg PO QHS [facility] Last Admin: 05/02/20 22:29 Dose: 100 mg Documented by: Zolpidem Tartrate (Zolpidem 5 Mg Tab) 5 mg PO QHS [facility] Last Admin: 05/02/20 22:29 Dose: 5 mg Documented by: Results - Results Labs/Vitals: Laboratory Last Values POC Glucose 71 mg/dL (70-105) 05/03/20 07:32 Triglycerides 94 mg/dL (2-149) 04/19/20 06:14 Cholesterol 140 mg/dL (50-199) 04/19/20 06:14 LDL Cholesterol Direct 61 mg/dL (50-130) 04/19/20 06:14 HDL Cholesterol 61 mg/dL (40-59) H 04/19/20 06:14 Cholesterol/HDL Ratio 2.29 % 04/19/20 06:14 TSH 2.660 mlU/mL (0.270-4.200) 04/19/20 06:14 Valproic Acid 69.8 ug/mL (50-100) 04/25/20 06:24 Coronavirus (PCR) Positive (Negative) A 05/02/20 11:00 Last Vital Signs Temp 98.2 F 05/02/20 22:00 Pulse 68 05/02/20 22:00 Resp 20 05/02/20 22:00 BP 145/63 05/02/20 22:00 Pulse Ox 98 05/02/20 22:00
[2020-05-03] MEDS: FLUoxetine 20 MG CAP PO SCH (09:00)
--- NOTE | 2020-05-03 09:14 | Discharge Summary ---
Providers - Providers Date of Admission: 04/18/20 19:12 Date of discharge: 05/04/20 Attending physician: KARLA REIS MD 04/18/20 13:06 Consult to Physician [CONS] Routine Comment: Consulting Provider: HINA ORTEGA Physician Instructions: Reason For Exam: manage medical conditions Primary care physician: TRANSIT MANAGER Hospitalization Reason for admission: psychosis Admitting Diagnosis: F20.9 - SCHIZOPHRENIA, UNSPECIFIED Condition: Stable Hospital course: The patient was provided inpatient psychiatric treatment with safe and supportive care, medication adjustment, adverse effect monitoring, medical evaluations, medical treatments, assessment and psycho-education. The patient's mood, cognition, behavior, moral support are improved and stabilized. St the time of discharge, the patient had no endangering behavior and no debilitating adverse effects. The patient agreed on potential consequences of no treatment and gave informed consent. Disposition: TO HOME OR SELFCARE Time spent for discharge: 38 Allergies/Adverse Reactions: Allergies No Known Allergies Allergy (Verified 04/15/20 10:56) Vital Signs: Last Vital Signs Temp 98.2 F 05/02/20 22:00 Pulse 68 05/02/20 22:00 Resp 20 05/02/20 22:00 BP 145/63 05/02/20 22:00 Pulse Ox 98 05/02/20 22:00 Last Lab: Laboratory Last Values POC Glucose 71 mg/dL (70-105) 05/03/20 07:32 Triglycerides 94 mg/dL (2-149) 04/19/20 06:14 Cholesterol 140 mg/dL (50-199) 04/19/20 06:14 LDL Cholesterol Direct 61 mg/dL (50-130) 04/19/20 06:14 HDL Cholesterol 61 mg/dL (40-59) H 04/19/20 06:14 Cholesterol/HDL Ratio 2.29 % 04/19/20 06:14 TSH 2.660 mlU/mL (0.270-4.200) 04/19/20 06:14 Valproic Acid 69.8 ug/mL (50-100) 04/25/20 06:24 Coronavirus (PCR) Positive (Negative) A 05/02/20 11:00 Core Measure Documentation - Palliative Care Palliative Care/ Comfort Measures: Not Applicable - Core Measures Any of the following diagnoses?: none Exam - Constitutional Vitals: Temp Pulse Resp BP Pulse Ox 98.2 F 68 20 145/63 98 05/02/20 22:00 05/02/20 22:00 05/02/20 22:00 05/02/20 22:00 05/02/20 22:00 General appearance: Present: no acute distress - EENT Eyes: Present: PERRL, EOM intact ENT: hearing intact, clear oral mucosa, dentition normal - Neck Neck: Present: supple, normal ROM - Respiratory Respiratory effort: normal Plan Activity: advance as tolerated Weight Bearing Status: Weight Bear as Tolerated Care Plan Goals: Maintain good and stable mental health Plan of Treatment: The patient should be compliant with medications, not to use drugs, and not to drink alcohol. The patient understands that if suicidal ideas, homicidal ideas or any endangering feeling arise, the patient should seek assistance including, but not limited to crisis hotline, and emergency room. Assessment: Schizophrenia Noncompliance Follow up with: PRIMARY CARE,MD [Primary Care Provider] - 7 Days Prescriptions: Zolpidem [Ambien] 5 mg PO QHS #30 tablet Melatonin [Melatonin 5MG TAB] 5 mg PO QHS #30 tablet QUEtiapine [SEROquel] 100 mg PO QHS #[address] [Depramon Connor] 500 mg PO TID #60 tablet FLUoxetine [PROzac] 20 mg PO QDAY #30 capsule OLANzapine [Zyprexa] 10 mg PO DAILY #30 tablet
[2020-05-03 20:42] VITALS: BP 142/68
[2020-05-03] MEDS: QUEtiapine 100 MG TAB PO SCH (21:12)
[2020-05-03] MEDS: MELATONIN 5 MG TAB PO SCH (21:12)
[2020-05-03] MEDS: ZOLPIDEM 5 MG TAB PO SCH (21:12)
[2020-05-04] MEDS: FLUoxetine 20 MG CAP PO SCH (09:40)
[2020-05-04] MEDS: DIVALPROEX DR 500 MG TAB PO SCH (09:42)
== END 2020-05-04 13:30 | disposition home or self-care (01) | DRG 885 ==
LOC: 3A 12:52 → UNDOADMIN 12:52 → 5A 19:12
PROVIDERS: ADMIT Psychiatry & Neurology Psychiatry; ATTEND Psychiatry & Neurology Psychiatry
DX: F20.9 Schizophrenia, unspecified (principal); U07.1 COVID-19; F01.51 Vascular dementia, unspecified severity, with behavioral disturbance; Z82.49 Family history of ischemic heart disease and other diseases of the circulatory system; I67.2 Cerebral atherosclerosis; Z91.19 Patient's noncompliance with other medical treatment and regimen
CPT/HCPCS: 36415; 71045; 80061; 80164; 82962; 84443; 94640; G0378; J2060; J3486; U0003

== ENCOUNTER 2020-07-26 23:51 | Emergency (ER) | payer MEDICARE ==
[2020-07-27] MEDS ORDERED: ZIPRASIDONE MESYLATE 20 MG VIAL IM ONE (00:27)
--- NOTE | 2020-07-27 00:45 | Emergency Department Report ---
HPI - General Time Seen by Provider: 07/27/20 00:02 - HPI HPI: This is a 69-year-old male who presents to the emergency department via EMS from his transitional living facility as a 1013 for a psychiatric evaluation. I spoke with the patient's psychiatrist, Dr. Rivera, who filled out the 1013. The patient has a history of schizophrenia and has not been taking his medications. Patient has been displaying unusual behavior that appears to be an exacerbation of his schizophrenia. The patient has been running out into the street, having rambling tangential speech, has become aggressive towards his roommate and staff. The patient says that he does not need to be here and is asking to leave. However, the patient is agitated, does display the same rambling tangential speech and thoughts, is moving furniture around in room 12 and is not compliant with any requests or commands. The patient is oriented to person, place, time, but does not display normal decision-making capacity and does appear to have acute psychosis. ED Past Medical Hx - Past Medical History Previous Medical History?: Yes Hx Psychiatric Treatment: Yes (Schizophrenia, bipolar) Additional medical history: unobtainable - Surgical History Additional Surgical History: unobtainable - Social History Smoking Status: Unknown if ever smoked - Medications Home Medications: Home Medications Medication Instructions Recorded Confirmed Last Taken Type Divalproex [Andreas Connor] 500 mg PO TID #60 tablet 05/03/20 Unknown Rx FLUoxetine [PROzac] 20 mg PO QDAY #30 capsule 05/03/20 Unknown Rx Melatonin [Melatonin 5MG TAB] 5 mg PO QHS #30 tablet 05/03/20 Unknown Rx OLANzapine [Zyprexa] 10 mg PO DAILY #30 tablet 05/03/20 Unknown Rx QUEtiapine [SEROquel] 100 mg PO QHS #30 tablet 05/03/20 Unknown Rx Zolpidem [Ambien] 5 mg PO QHS #30 tablet 05/03/20 Unknown Rx ED Review of Systems ROS: Stated complaint: MH EVAL Other details as noted in HPI Comment: Unobtainable due to pts medical conditions Critical care attestation.: If time is entered above; I have spent that time in minutes in the direct care of this critically ill patient, excluding procedure time. ED Disposition Condition: Stable
[2020-07-27 01:03] LABS: Basophils % (Auto) 0.4 % (0.0-1.8); Eosinophils # (Auto) 0.2 K/mm3 (0.0-0.4); Eosinophils % (Auto) 1.8 % (0.0-4.3); Hematocrit 38.6 % (35.5-45.6); Hemoglobin 12.8 gm/dl (11.8-15.2); Lymphocytes # (Auto) 1.4 K/mm3 (1.2-5.4); Lymphocytes % (Auto) 14.1 % (13.4-35.0); Mean Corpuscular HGB Conc 33 % (32-34); Mean Corpuscular Volume 96 fl (84-94); Monocytes # (Auto) 0.6 K/mm3 (0.0-0.8); Monocytes % (Auto) 6.2 % (0.0-7.3); Platelet Count 256 K/mm3 (140-440); Red Cell Distribution Width 15.8 % (13.2-15.2)
[2020-07-27 01:07] LABS: BUN/Creatinine Ratio 29; Blood Urea Nitrogen 29 mg/dL (9-20); Calcium 9.3 mg/dL (8.4-10.2); Hemolysis Index 10
[2020-07-27 05:53] LABS: Bilirubin,Urine NEG (Negative); Blood,Urine NEG (Negative); Color,Urine Yellow (Yellow); Mucus,Urine 3+ /HPF
[2020-07-27 08:13] LABS: Amphetamine Screen,Urine PRESUMPTIVE NEGATIVE; Benzodiazepines Screen,Urine PRESUMPTIVE NEGATIVE; Cannabinoid Screen,Urine PRESUMPTIVE NEGATIVE; Cocaine Screen,Urine PRESUMPTIVE NEGATIVE; Methadone Screen,Urine PRESUMPTIVE NEGATIVE; Opiate Screen,Urine PRESUMPTIVE NEGATIVE
--- NOTE | 2020-07-27 10:47 | Consultation ---
History of Present Illness - Reason for Consult Consult date: 07/27/20 Reason for consult: psychosis - History of Present Psychiatric Illness Per ED Note: This is a 69-year-old male who presents to the emergency department via EMS from his transitional living facility as a 1013 for a psychiatric evaluation. I spoke with the patient's psychiatrist, Dr. Rivera, who filled out the 1013. The patient has a history of schizophrenia and has not bee n taking his medications. Patient has been displaying unusual behavior that appears to be an exacerbation of his schizophrenia. The patient has been running out into the street, having rambling tangential speech, has become aggressive towards his roommate and staff. The patient says that he does not need to be here and is asking to leave. However, the patient is agitated, does display the same rambling tangential speech and thoughts, is moving furniture around in room 12 and is not compliant with any requests or commands. The patient is oriented to person, place, time, but does not display normal decision-making capacity and does appear to have acute psychosis. Gwyn Oliver is a 69y/o male who is known to me from a previous visit. He is paranoid and delusional. His thoughts are disorganized. The patient is intrusive. He is walking up while I'm talking with another patient. When I'm assessing him he becomes irritable. He states that his "water is poisoned and he's not drinking it." The then raises up at point at it sitting on the floor. The patient says "I'm Gwyn Ceron." The patient says he "got framed and that's why I'm here." He says "they brought me here for no reason." He then starts rambling about an apartment he's supposed to be moving in. As I'm talking to him is pointing and says "people are putting stuff in my food and doing things to me and I'm tired of it." When asked was he taking his medications, the patient replied "I don't need them." PAST PSYCHIATRIC HISTORY Diagnoses: schizophrenia Suicide attempts or Self-harm behavior: Denies Prior psychiatric hospitalizations: Denies Substance Abuse history: Heroine Previous psychiatric medications tried: zyprexa documented Outpatient treatment: "a long time ago." PAST MEDICAL HISTORY: None reported Family Psychiatric History: None reported or documented SOCIAL HISTORY Unable to assess REVIEW OF SYSTEMS Constitutional: Negative for weight loss ENT: Negative for stridor Respiratory: Negative for cough or hemoptysis All other systems reviewed and are negative MENTAL STATUS EXAMINATION General Appearance and Behavior: Age appropriate, good hygiene, wearing appropriate clothes, poor eye contact, irritable Cooperation: Participating/engaged Psychomotor Behavior: Psychomotor normal Mood: irritable Affect and affective range: congruent with stated mood Thought Process: illogical Thought Content: none Speech: rambling, disorganized Suicidal Ideation: Denies at present Homicidal Ideation: Denies Hallucinations: Denies Delusions: yes, paranoid Impulse Control: Impaired Insight and Judgment: impaired insight and judgment Memory: Impaired Attention: impaired Orientation: Alert, oriented Assessment and Plan (1) Schizophrenia (2) Noncompliance with other medical treatments and regimen Treatment Plan [address] 250mg po BID Zyprexa 5mg po daily Vistaril 25mg po BID prn anxiety Trazodone 50mg po qhs Geodon 10mg q4h prn agitation Sitter: Per primary Medical: Per primary Disposition: Recommend acute psychiatric inpatient Will follow Case staffed with Dr. Briceño Medications and Allergies Allergies Allergy/AdvReac Type Severity Reaction Status Date / Time No Known Allergies Allergy Verified 04/15/20 10:56 Home Medications Medication Instructions Recorded Confirmed Last Taken Type Divalproex Dr [Depramon Connor] 500 mg PO TID #60 tablet 05/03/20 07/27/20 Unknown Rx Gandy Carbonate [Eskalith] 150 mg PO TID 07/27/20 07/27/20 Unknown History QUEtiapine [SEROquel] 200 mg PO TID 07/27/20 07/27/20 Unknown History Mental Status Exam - Vital signs Last Vital Signs Temp 99.1 F 07/27/20 05:30 Pulse 66 07/27/20 05:30 Resp 18 07/27/20 05:30 BP 132/67 07/27/20 05:30 Pulse Ox 99 07/27/20 05:30 Results Result Diagrams: 07/27/20 00:28 07/27/20 00:28 Abnormal lab results 07/27/20 07/27/20 Range/Units 00:28 00:28 MCV 96 H (84-94) fl RDW 15.8 H (13.2-15.2) % Seg Neutrophils % 77.5 H (40.0-70.0) % Sodium 149 H (137-145) mmol/L Chloride 107.3 H (98-107) mmol/L BUN 29 H (9-20) mg/dL All other labs normal.
[2020-07-27] MEDS ORDERED: ZIPRASIDONE MESYLATE 20 MG VIAL IM PRN (10:57)
[2020-07-27] MEDS ORDERED: hydrOXYzine PAMOATE 25 MG CAP PO PRN (10:58)
[2020-07-27] MEDS ORDERED: WATER FOR INJ Sterile (PF) 10 ML ONE (11:03)
[2020-07-27] MEDS ORDERED: DIVALPROEX DR 250 MG TAB PO SCH (12:00)
[2020-07-27 12:38] VITALS: BP 139/48
[2020-07-27] MEDS ORDERED: traZODone 50 MG TAB PO SCH (22:00)
== END 2020-07-27 18:15 ==
LOC: ED 23:51
DX: F20.9 Schizophrenia, unspecified (principal); Z20.822 Contact with and (suspected) exposure to COVID-19; F31.9 Bipolar disorder, unspecified; Z79.899 Other long term (current) drug therapy
CPT/HCPCS: 36415; 80048; 80307; 81001; 85025; 96372; 99285; J3486; Q0177; U0003; 80320; G0480

== ENCOUNTER 2020-10-11 19:23 | Emergency (ER) | payer MEDICARE ==
[2020-10-11 21:40] VITALS: BP 147/55
== END 2020-10-11 23:00 | disposition left against medical advice (07) ==
LOC: ED 19:23
DX: M54.9 Dorsalgia, unspecified (principal); Z53.21 Procedure and treatment not carried out due to patient leaving prior to being seen by health care provider

== ENCOUNTER 2020-10-14 01:02 | Emergency (ER) | payer MEDICARE | END 2020-10-14 01:07 | disposition left against medical advice (07) | LOC: ED 01:02 | DX: M54.6 Pain in thoracic spine (principal); Z53.21 Procedure and treatment not carried out due to patient leaving prior to being seen by health care provider ==